=== PATIENT | female | born 1960 | race Hispanic/Latino ===

== ENCOUNTER 2019-03-05 13:13 | Inpatient (IN) | payer BC, OTHER ==
[2019-03-05] MEDS ORDERED: Albuterol-Ipratrop 3 mg / 0.5 (3 ml) UD INH STA ×2 (13:45→17:07)
[2019-03-05 14:06] LABS: ABG ALLEN TEST YES; ARTERIAL BLOOD GAS HCO3 27.4 mmol/L (21-28); ARTERIAL BLOOD GAS O2 SAT 96.3 % (95-98); ARTERIAL BLOOD GAS PCO2 48 mm/Hg (35-45); ARTERIAL BLOOD GAS PH 7.39 (7.35-7.45); ARTERIAL BLOOD GAS PO2 64 mm/Hg (80-100); ARTERIAL BLOOD GAS TCO2 30.6 mmol/L (22-28)
[2019-03-05 14:18] LABS: INR 1.1; PROTHROMBIN TIME 12.9 Seconds (9.8-13.1)
[2019-03-05 14:21] LABS: PARTIAL THROMBOPLASTIN TIME 34.7 Seconds (25.6-37.1)
[2019-03-05 14:22] LABS: ALB/GLOB RATIO 1.2 (1.0-2.1); ALBUMIN 4.3 g/dL (3.5-5.0); ALT/SGPT 47 U/L (9-52); AST/SGOT 43 U/L (14-36); BLOOD UREA NITROGEN 15 mg/dl (7-17); CALCIUM 8.6 mg/dL (8.4-10.2); GFR NON-AFRICAN AMERICAN > 60
[2019-03-05 14:24] LABS: BASO % 0.1 % (0.0-2.0); EOS % 0.1 % (0.0-4.0); HEMOGLOBIN 14.3 g/dL (12.0-16.0); LYMPH # 0.8 K/uL (1.0-4.3); LYMPH % 12.8 % (20.0-40.0); MEAN CELL VOLUME 103.4 fl (81.0-99.0); MEAN CORPUSCULAR HGB CONC 33.9 g/dL (33.0-37.0); MEAN PLATELET VOLUME 8.7 fl (7.2-11.7); MONO # 0.2 K/uL (0.0-0.8); NEUT # 5.1 K/uL (1.8-7.0); NRBC % 0.1 % (0.0-0.0); RBC 4.08 Mil/uL (3.80-5.20); RED CELL DISTRIBUTION WIDTH 13.4 % (11.5-14.5); WHITE BLOOD COUNT 6.1 K/uL (4.8-10.8)
[2019-03-05 14:34] LABS: B-TYPE NATRIURETIC PEPTIDE 29.6 pg/ml (0-900)
--- NOTE | 2019-03-05 14:43 | ED PDOC ---
HPI: SOB/CHF/COPD Time Seen by Provider: 03/05/19 13:31 Chief Complaint (Nursing): Shortness Of Breath Chief Complaint (Provider): Shortness Of Breath History Per: Patient History/Exam Limitations: no limitations Onset/Duration Of Symptoms: Persistent, Worse Since (3 days) Current Symptoms Are (Timing): Still Present Additional Complaint(s): 58 year old female presents to the emergency department with a complaint of shortness of breath associated with nonproductive cough, subjective fever, and chest congestion for 1 week but worsen in the past 3 days. She denies any leg pain or swelling. Yesterday, patient went to Urgent Care, as her PCP office was closed, then discharged with Rx for Prednisone and Levaquin. She started both medication today, however, shortness of breath increased, thus, prompting ED visit. Past Medical History Reviewed: Historical Data, Nursing Documentation, Vital Signs Vital Signs: Last Vital Signs Temp 98.6 F 03/05/19 13:24 Pulse 74 03/05/19 13:24 Resp 20 03/05/19 13:24 BP 145/80 03/05/19 13:24 Pulse Ox 98 03/05/19 13:24 Primary Care Provider: Aayush Hines - Medical History PMH: COPD - Surgical History Surgical History: No Surg Hx - Family History Family History: States: No Known Family Hx - Social History Current smoker - smoking cessation education provided: No Ex-Smoker (has not smoked in the last 12 months): Yes (2011) - Home Medications Home Medications: Ambulatory Orders Medication Instructions Recorded Albuterol Sulfate [Ventolin Hfa] 2 puff PO PRN PRN 03/05/19 Budesonide/Formoterol Fumarate 2 aer IH DAILY 03/05/19 [Symbicort] Fluticasone Nasal [Flonase] 2 actuation NS DAILY 03/05/19 Levofloxacin [Levaquin] 500 mg PO DAILY 03/05/19 Prednisolone [Millipred] 50 mg PO DAILY 03/05/19 - Allergies Allergies/Adverse Reactions: Allergies Allergy/AdvReac Type Severity Reaction Status Date / Time Penicillins Allergy Verified 03/05/19 13:41 Review of Systems ROS Statement: Except As Marked, All Systems Reviewed And Found Negative Constitutional: Positive for: Fever (subjective) Cardiovascular: Positive for: Other (congestion) Respiratory: Positive for: Cough, Shortness of Breath. Negative for: Sputum Musculoskeletal: Negative for: Leg Pain (or swelling) Physical Exam - Reviewed Nursing Documentation Reviewed: Yes Vital Signs Reviewed: Yes - Physical Exam Appears: Positive for: Non-toxic, In Acute Distress Head Exam: Positive for: ATRAUMATIC, NORMOCEPHALIC Skin: Positive for: Warm, Dry, Pallor Eye Exam: Positive for: EOMI, PERRL ENT: Positive for: Pharynx Is (clear) Neck: Positive for: Painless ROM, Supple Cardiovascular/Chest: Positive for: Regular Rate, Rhythm. Negative for: Murmur Respiratory: Positive for: Accessory Muscle Use, Rhonchi (faint), Wheezing (expiratory bilaterally), Respiratory Distress (mildly with poor air movement) Gastrointestinal/Abdominal: Positive for: Soft. Negative for: Tenderness Back: Positive for: Normal Inspection. Negative for: Decreased ROM Extremity: Negative for: Pedal Edema, Calf Tenderness, Swelling Lymphatic: Negative for: Adenopathy Neurological/Psych: Positive for: Awake, Alert. Negative for: Motor/Sensory Deficits - Laboratory Results Result Diagrams: 03/06/19 04:20 03/06/19 04:20 Lab Results: pCO2 48 mm/Hg (35-45) H 03/05/19 14:01 pO2 64 mm/Hg (80-100) L 03/05/19 14:01 HCO3 27.4 mmol/L (21-28) 03/05/19 14:01 ABG pH 7.39 (7.35-7.45) 03/05/19 14:01 ABG Total CO2 30.6 mmol/L (22-28) H 03/05/19 14:01 ABG O2 Saturation 96.3 % (95-98) 03/05/19 14:01 ABG Base Excess 3.3 mmol/L (-2.0-3.0) H 03/05/19 14:01 Mynor Test Yes 03/05/19 14:01 ABG Potassium 4.1 mmol/L (3.6-5.2) 03/05/19 14:01 A-a O2 Difference 76.0 mm/Hg 03/05/19 14:01 Sodium 135.0 mmol/L (132-148) 03/05/19 14:01 Chloride 101.0 mmol/L (98-107) 03/05/19 14:01 Glucose 162 mg/dL (65-105) H 03/05/19 14:01 Lactate 1.0 mmol/L (0.7-2.1) 03/05/19 14:01 FiO2 28.0 % 03/05/19 14:01 PT 12.9 Seconds (9.8-13.1) 03/05/19 14:08 INR 1.1 03/05/19 14:08 APTT 34.7 Seconds (25.6-37.1) 03/05/19 14:08 D-Dimer, Quantitative 260 ng/mlDDU (0-230) H 03/05/19 14:08 Troponin I < 0.0120 ng/mL (0.00-0.120) 03/05/19 14:08 NT-Pro-B Natriuret Pep 29.6 pg/ml (0-900) 03/05/19 14:08 Total Bilirubin 0.4 mg/dl (0.2-1.3) 03/05/19 14:08 AST 43 U/L (14-36) H 03/05/19 14:08 ALT 47 U/L (9-52) 03/05/19 14:08 Alkaline Phosphatase 76 U/L (38-126) 03/05/19 14:08 Total Protein 7.9 G/DL (6.3-8.2) 03/05/19 14:08 Albumin 4.3 g/dL (3.5-5.0) 03/05/19 14:08 Globulin 3.6 gm/dL (2.2-3.9) 03/05/19 14:08 Albumin/Globulin Ratio 1.2 (1.0-2.1) 03/05/19 14:08 - ECG O2 Sat by Pulse Oximetry: 98 (RA) Pulse Ox Interpretation: Normal Medical Decision Making Medical Decision Making: Initial Impression: dyspnea Differential diagnosis includes but not limited to: COPD exacerbation; pneumonia; CHF; bronchitis Initial Plan: * Labs * CTA chest * EKG * CXR * Duoneb INH * Solu-medrol IVP * Blood culture * Influenza AB Time: 1345 --EKG: NSR at 88 BMP. normal QRS with (-) ST segment changes. CXR No acute pathology ABG demonstrated pCO2 mildly elevated and pO2 below normal. Time: 1625 --CTA chest FINDINGS: PULMONARY ARTERIES: Unremarkable. No pulmonary embolism. AORTA: No acute findings. No thoracic aortic aneurysm. No aortic atherosclerotic calcification or mural plaque present. LUNGS: Minimal centrilobular pulmonary emphysema. No pulmonary infiltrate. No mass. PLEURAL SPACES: Unremarkable. No effusion or pneumothorax. HEART: Unremarkable. No cardiomegaly. No significant pericardial effusion. LYMPH NODES: No lymphadenopathy. BONES, CHEST WALL: Unremarkable. No fracture or destructive lesion OTHER FINDINGS: Unremarkable. IMPRESSION: No evidence of pulmonary embolism. Minimal centrilobular pulmonary emphysema. Otherwise unremarkable examination. Time: 1630 --Upon re-eval, patient reports persistent shortness of breath. Findings and plan of care discussed with patient who verbalizes understanding. Patient will require hospitalization with additional IV magnesium for further management of COPD exacerbation. Case discussed with Dr. Bay and Dr. Hines. Scribe Attestation: Documented by Mecca Dunlap, acting as a scribe for Lupe Quintana MD. Provider Scribe Attestation: All medical record entries made by the Scribe were at my direction and personally dictated by me. I have reviewed the chart and agree that the record accurately reflects my personal performance of the history, physical exam, medical decision making, and the department course for this patient. I have also personally directed, reviewed, and agree with the discharge instructions and disposition. Disposition - Clinical Impression Clinical Impression: COPD exacerbation, Dyspnea Counseled Patient/Family Regarding: Studies Performed, Diagnosis - Disposition Disposition Time: 16:00 Condition: FAIR - Pt Status Changed To: Hospital Disposition Of: Observation - POA Present On Arrival: None Critical Care Time - Critical Care Note Total Time (in mins): 30 Documented critical care: time excludes all time spent performing seperately billable procedures.
[2019-03-05] MEDS ORDERED: Iodixanol 320 MG/ML 100 ML BOTTLE IV ONE (14:52)
[2019-03-05] MEDS ORDERED: Sodium Chloride 0.9% 50 ML IV ONE (14:53)
--- NOTE | 2019-03-05 16:13 | RAD ---
Date of service: 03/05/2019 HISTORY: SOB COMPARISON: 12/25/2013 TECHNIQUE: 1 view obtained. FINDINGS: LUNGS: No active pulmonary disease. PLEURA: No significant pleural effusion identified, no pneumothorax apparent. CARDIOVASCULAR: No aortic atherosclerotic calcification present. Normal cardiac size. No pulmonary vascular congestion. OSSEOUS STRUCTURES: No significant abnormalities. VISUALIZED UPPER ABDOMEN: Normal. OTHER FINDINGS: None. IMPRESSION: No active disease.
--- NOTE | 2019-03-05 16:29 | CT ---
Date of service: 03/05/2019 PROCEDURE: CT Chest with contrast (Pulmonary Angiogram) HISTORY: sob elevated ddimer COMPARISON: 12/18/2013 TECHNIQUE: Axial computed tomography images were obtained of the chest in the pulmonary arterial phase of enhancement. Coronal and sagittal reformatted images were created and reviewed. Intravenous contrast dose: 95 mL Visipaque 320 Radiation dose: Total exam DLP = 386.99 mGy-cm. This CT exam was performed using one or more of the following dose reduction techniques: Automated exposure control, adjustment of the mA and/or kV according to patient size, and/or use of iterative reconstruction technique. FINDINGS: PULMONARY ARTERIES: Unremarkable. No pulmonary embolism. AORTA: No acute findings. No thoracic aortic aneurysm. No aortic atherosclerotic calcification or mural plaque present. LUNGS: Minimal centrilobular pulmonary emphysema. No pulmonary infiltrate. No mass. PLEURAL SPACES: Unremarkable. No effusion or pneumothorax. HEART: Unremarkable. No cardiomegaly. No significant pericardial effusion. LYMPH NODES: No lymphadenopathy. BONES, CHEST WALL: Unremarkable. No fracture or destructive lesion OTHER FINDINGS: Unremarkable. IMPRESSION: No evidence of pulmonary embolism. Minimal centrilobular pulmonary emphysema. Otherwise unremarkable examination.
[2019-03-05] MEDS ORDERED: Magnesium Sulfate 2 gm/50 ml 2 GM/50 ML BAG IVPB ONE (16:51)
[2019-03-05] MEDS ORDERED: Magnesium Sulfate 2 gm/50 ml 2 GM/50 ML BAG ONE (16:59)
[2019-03-05] MEDS ORDERED: Albuterol HFA 90 mcg/actuation (8 g) INH PRN (18:30)
[2019-03-05] MEDS ORDERED: Albuterol-Ipratrop 3 mg / 0.5 (3 ml) UD INH PRN (18:34)
--- NOTE | 2019-03-05 19:15 | CP.PCM.HP ---
<Patricia Farmer - Last Filed: 03/05/19 19:19> History of Present Illness - History of Present Illness History of Present Illness: CC: dyspnea HPI: 58 YO Female with PMHx of smoking and COPD presents to the ED for dyspnea. Patient states that she has been having mild dyspnea in the past few days, worsened two days ago. Patient went to a urgent care last week and was given PO prednisone and Levofloxacin but her symptoms persisted. Patient states that a few weeks ago, she was found to have walking pneumonia and was treated with a course of abx, but that has resolved. PMHx: asthma as a child, hx smoking and COPD SurgHs: denies SHx: smoking in the past, quit 10+ yrs ago, denies ETOH and illicit drug use FHx: emphesema Allergies: penicillin Meds: symbicort and albuterol Present on Admission - Present on Admission Any Indicators Present on Admission: No Review of Systems - Constitutional Constitutional: absent: Anorexia, Chills, Fever - Cardiovascular Cardiovascular: Dyspnea. absent: Chest Pain, Palpitations - Respiratory Respiratory: Dyspnea. absent: Cough - Gastrointestinal Gastrointestinal: absent: Abdominal Pain Past Patient History - Past Social History Smoking Status: Former Smoker Alcohol: None Drugs: Denies - PULMONARY Hx Chronic Obstructive Pulmonary Disease (COPD): Yes - PSYCHIATRIC Hx Substance Use: No - ANESTHESIA Hx Anesthesia: No Meds Allergies/Adverse Reactions: Allergies Allergy/AdvReac Type Severity Reaction Status Date / Time Penicillins Allergy Verified 03/05/19 13:41 Physical Exam - Constitutional Appears: Other (able to talk in complete sensences, mildly red, NC on ) - Head Exam Head Exam: NORMAL INSPECTION - Eye Exam Eye Exam: EOMI, Normal appearance - ENT Exam ENT Exam: Mucous Membranes Moist - Respiratory Exam Respiratory Exam: Wheezes (expiratory and inspiratory wheezing ), NORMAL BREATHING PATTERN (tight ) - Cardiovascular Exam Cardiovascular Exam: REGULAR RHYTHM, +S1, +S2 - GI/Abdominal Exam GI & Abdominal Exam: Normal Bowel Sounds, Soft (obese). absent: Tenderness - Extremities Exam Extremities exam: Positive for: normal inspection. Negative for: calf te nderness, pedal edema - Neurological Exam Neurological exam: Alert, Oriented x3 - Psychiatric Exam Psychiatric exam: Normal Mood - Skin Skin Exam: Warm (flushed ) Results - Vital Signs Recent Vital Signs: Last Vital Signs Temp 98.3 F 03/05/19 19:04 Pulse 88 03/05/19 19:04 Resp 22 03/05/19 19:04 BP 120/70 03/05/19 19:04 Pulse Ox 90 L 03/05/19 19:04 - Labs Result Diagrams: 03/05/19 14:08 03/05/19 14:08 Labs: Laboratory Results - last 24 hr 03/05/19 03/05/19 03/05/19 14:01 14:08 14:08 WBC 6.1 RBC 4.08 Hgb 14.3 Hct 42.2 MCV 103.4 H MCH 35.0 H MCHC 33.9 RDW 13.4 Plt Count 154 MPV 8.7 Neut % (Auto) 83.0 H Lymph % (Auto) 12.8 L [place] % (Auto) 4.0 Eos % (Auto) 0.1 Baso % (Auto) 0.1 Neut # (Auto) 5.1 Lymph # (Auto) 0.8 L [place] # (Auto) 0.2 Eos # (Auto) 0.0 Baso # (Auto) 0.0 PT INR APTT D-Dimer, Quantitative pCO2 48 H pO2 64 L HCO3 27.4 ABG pH 7.39 ABG Total CO2 30.6 H ABG O2 Saturation 96.3 ABG Base Excess 3.3 H Mynor Test Yes ABG Potassium 4.1 A-a O2 Difference 76.0 Sodium 135.0 137 Chloride 101.0 99 Glucose 162 H Lactate 1.0 FiO2 28.0 Potassium 4.5 Carbon Dioxide 28 Anion Gap 15 BUN 15 Creatinine 0.5 L Est GFR ( Amer) > 60 Est GFR (Non-Af Amer) > 60 Random Glucose 157 H Calcium 8.6 Total Bilirubin 0.4 AST 43 H ALT 47 Alkaline Phosphatase 76 Troponin I < 0.0120 NT-Pro-B Natriuret Pep 29.6 Total Protein 7.9 Albumin 4.3 Globulin 3.6 Albumin/Globulin Ratio 1.2 TSH 3rd Generation 0.59 Arterial Blood Potassium 4.1 Influenza Typ A,B (EIA) 03/05/19 03/05/19 14:08 14:08 WBC RBC Hgb Hct MCV MCH MCHC RDW Plt Count MPV Neut % (Auto) Lymph % (Auto) [place] % (Auto) Eos % (Auto) Baso % (Auto) Neut # (Auto) Lymph # (Auto) [place] # (Auto) Eos # (Auto) Baso # (Auto) PT 12.9 INR 1.1 APTT 34.7 D-Dimer, Quantitative 260 H pCO2 pO2 HCO3 ABG pH ABG Total CO2 ABG O2 Saturation ABG Base Excess Mynor Test ABG Potassium A-a O2 Difference Sodium Chloride Glucose Lactate FiO2 Potassium Carbon Dioxide Anion Gap BUN Creatinine Est GFR ( Amer) Est GFR (Non-Af Amer) Random Glucose Calcium Total Bilirubin AST ALT Alkaline Phosphatase Troponin I NT-Pro-B Natriuret Pep Total Protein Albumin Globulin Albumin/Globulin Ratio TSH 3rd Generation Arterial Blood Potassium Influenza Typ A,B (EIA) Negative for flu a/b - EKG Data EKG Interpreted by: Myself EKG shows normal: Sinus rhythm Rate: Normal (Normal sinus with a rate of 88, no ST or T wave changes ) Assessment & Plan - Assessment and Plan (Free Text) Assessment: Assessment/Plan: 58 YO Female with PMHx of smoking and COPD is admitted for COPD exacerbation. COPD exacerbation -CT no acute infiltrate, no PE -c/w IV steriods -start duonab Q2/Q4 as needed -O2 via NC as needed -stat azithromycin for COPD exacerbation -c/w home meds -Pulmonary consulted; follow up recs Hx of smoking -stopped smoking DVT prolx -Lovenox SC <[place] - Last Filed: 03/05/19 20:39> Results - Vital Signs Recent Vital Signs: Last Vital Signs Temp 98.3 F 03/05/19 20:36 Pulse 78 03/05/19 20:36 Resp 20 03/05/19 20:36 BP 120/71 03/05/19 20:36 Pulse Ox 98 03/05/19 20:36 - Labs Result Diagrams: 03/05/19 14:08 03/05/19 14:08 Labs: Laboratory Results - last 24 hr 03/05/19 03/05/19 03/05/19 14:01 14:08 14:08 WBC 6.1 RBC 4.08 Hgb 14.3 Hct 42.2 MCV 103.4 H MCH 35.0 H MCHC 33.9 RDW 13.4 Plt Count 154 MPV 8.7 Neut % (Auto) 83.0 H Lymph % (Auto) 12.8 L [place] % (Auto) 4.0 Eos % (Auto) 0.1 Baso % (Auto) 0.1 Neut # (Auto) 5.1 Lymph # (Auto) 0.8 L [place] # (Auto) 0.2 Eos # (Auto) 0.0 Baso # (Auto) 0.0 PT INR APTT D-Dimer, Quantitative pCO2 48 H pO2 64 L HCO3 27.4 ABG pH 7.39 ABG Total CO2 30.6 H ABG O2 Saturation 96.3 ABG Base Excess 3.3 H Mynor Test Yes ABG Potassium 4.1 A-a O2 Difference 76.0 Sodium 135.0 137 Chloride 101.0 99 Glucose 162 H Lactate 1.0 FiO2 28.0 Potassium 4.5 Carbon Dioxide 28 Anion Gap 15 BUN 15 Creatinine 0.5 L Est GFR ( Amer) > 60 Est GFR (Non-Af Amer) > 60 Random Glucose 157 H Calcium 8.6 Total Bilirubin 0.4 AST 43 H ALT 47 Alkaline Phosphatase 76 Troponin I < 0.0120 NT-Pro-B Natriuret Pep 29.6 Total Protein 7.9 Albumin 4.3 Globulin 3.6 Albumin/Globulin Ratio 1.2 TSH 3rd Generation 0.59 Arterial Blood Potassium 4.1 Influenza Typ A,B (EIA) 03/05/19 03/05/19 14:08 14:08 WBC RBC Hgb Hct MCV MCH MCHC RDW Plt Count MPV Neut % (Auto) Lymph % (Auto) [place] % (Auto) Eos % (Auto) Baso % (Auto) Neut # (Auto) Lymph # (Auto) [place] # (Auto) Eos # (Auto) Baso # (Auto) PT 12.9 INR 1.1 APTT 34.7 D-Dimer, Quantitative 260 H pCO2 pO2 HCO3 ABG pH ABG Total CO2 ABG O2 Saturation ABG Base Excess Mynor Test ABG Potassium A-a O2 Difference Sodium Chloride Glucose Lactate FiO2 Potassium Carbon Dioxide Anion Gap BUN Creatinine Est GFR ( Amer) Est GFR (Non-Af Amer) Random Glucose Calcium Total Bilirubin AST ALT Alkaline Phosphatase Troponin I NT-Pro-B Natriuret Pep Total Protein Albumin Globulin Albumin/Globulin Ratio TSH 3rd Generation Arterial Blood Potassium Influenza Typ A,B (EIA) Negative for flu a/b Attending/Attestation - Attestation I have personally seen and examined this patient.: Yes I have fully participated in the care of the patient.: Yes I have reviewed all pertinent clinical information: Yes Notes (Text): 03/05/19 20:37 58 year old female admitted for COPD exacerbation, worsening dyspnea for two days, not improving with breathing treatments at home. Went to urgent care and received Levaquin and course of steroids without improvement. Patient of Dr. Hines, will place on obs for further bronchodilators, high dose steroids around the clock, ppx Azithromycin. Consult with Dr. Hines appreciated and followed.
[2019-03-05] MEDS ORDERED: Azithromycin 500 MG in Sodium Chloride 0.9% 250 ML IVPB STA (19:39)
[2019-03-05] MEDS: FLUTICASONE PROPION/SALMETEROL 113-14 IH SCH (21:32)
[2019-03-06] MEDS: Albuterol-Ipratrop 3 mg / 0.5 (3 ml) UD INH SCH ×6 (00:06→19:12)
[2019-03-06 05:47] LABS: BASO % 0.1 % (0.0-2.0); HEMOGLOBIN 13.5 g/dL (12.0-16.0); LYMPH # 0.8 K/uL (1.0-4.3); LYMPH % 14.2 % (20.0-40.0); MEAN CELL VOLUME 103.2 fl (81.0-99.0); MEAN CORPUSCULAR HEMOGLOBIN 34.8 pg (27.0-31.0); MEAN CORPUSCULAR HGB CONC 33.8 g/dL (33.0-37.0); MEAN PLATELET VOLUME 8.8 fl (7.2-11.7); MONO # 0.2 K/uL (0.0-0.8); MONO % 3.2 % (0.0-10.0); NEUT # 4.9 K/uL (1.8-7.0); NEUT % 82.5 % (50.0-75.0); RBC 3.86 Mil/uL (3.80-5.20); RED CELL DISTRIBUTION WIDTH 13.5 % (11.5-14.5); WHITE BLOOD COUNT 5.9 K/uL (4.8-10.8)
[2019-03-06 05:51] LABS: BLOOD UREA NITROGEN 16 mg/dl (7-17); CALCIUM 8.3 mg/dL (8.4-10.2); GFR NON-AFRICAN AMERICAN > 60
[2019-03-06] MEDS: FLUTICASONE PROPION/SALMETEROL 113-14 IH SCH (08:11)
[2019-03-06] MEDS: Enoxaparin 40 mg Syringe SC SCH (08:14)
[2019-03-06] MEDS ORDERED: FORMOTEROL FUMARATE IH SCH (09:00)
[2019-03-06] MEDS ORDERED: [UNRECOGNIZED DRUG - OTHER] IH SCH (09:00)
[2019-03-06] MEDS ORDERED: BUDESONIDE IH SCH (09:00)
[2019-03-06 09:15] LABS: ABG ALLEN TEST YES; ARTERIAL BLOOD GAS HCO3 27.2 mmol/L (21-28); ARTERIAL BLOOD GAS HEMOGLOBIN 13.9 g/dL (11.7-17.4); ARTERIAL BLOOD GAS O2 CAPACITY 18.9 mL/dL (16-24); ARTERIAL BLOOD GAS O2 CONTENT 16.7 ML/dL (15-23); ARTERIAL BLOOD GAS O2 SAT 88.3 % (95-98); ARTERIAL BLOOD GAS PCO2 44 mm/Hg (35-45); ARTERIAL BLOOD GAS PH 7.42 (7.35-7.45); ARTERIAL BLOOD GAS PO2 49 mm/Hg (80-100); ARTERIAL BLOOD GAS TCO2 29.9 mmol/L (22-28)
[2019-03-06] MEDS ORDERED: Albuterol HFA 90 mcg/actuation (8 g) INH PRN (09:42)
[2019-03-06] MEDS ORDERED: methylPREDNISolone 40 MG in Sodium Chloride 0.9% 50 ML IV SCH (09:45)
--- NOTE | 2019-03-06 09:53 | CP.PCM.CON ---
History of Present Illness - History of Present Illness History of Present Illness: This 58-year-old female who is a former cigarette smoker who presented to the emergency department with a 2-3 day history of cough and increasing dyspnea. She did have an upper respiratory infection in the week prior to ER presentation for which she was seen at a local urgent care center. She was given prednisone and levofloxacin but failed to show any improvement. Her breathing continued to worsen and she finally came to the emergency department for evaluation. A chest x-ray done at that time as well as a CT angiogram of the chest did not reveal any acute infiltrates or pulmonary emboli. She was found to have diffuse whee zing and was given corticosteroids as well as magnesium parenterally and aerosol therapy after which she was placed in observation on the medical floor. She was seen in the office approximately 2 months ago at which time she was complaining of a persistent cough and was placed on Symbicort 160/4.5, 2 inhalations twice daily for exacerbation of asthma/COPD overlap syndrom Review of Systems - Review of Systems All systems: reviewed and no additional remarkable complaints except - Constitutional Constitutional: Fatigue - Respiratory Respiratory: Cough, Dyspnea, Wheezing, Chest Congestion Past Patient History - Past Medical History & Family History Past Medical History?: Yes Pertinent Family History: MotherCOPD. Fathercancer. One brotherheart disease. One brotherdiabetes. - Past Social History Smoking Status: Former Smoker (smoked up to 2 packs per day for 30 years) Chewing Tobacco Use: No Cigar Use: No Alcohol: Social Drugs: Denies Home Situation {Lives}: With Family - CARDIAC Hx Cardiac Disorders: No - PULMONARY Hx Asthma: Yes Hx Chronic Obstructive Pulmonary Disease (COPD): Yes Hx Pneumonia: Yes - NEUROLOGICAL Hx Neurological Disorder: No - HEENT Hx HEENT Problems: No - RENAL Hx Chronic Kidney Disease: No - ENDOCRINE/METABOLIC Other/Comment: prediabetes - HEMATOLOGICAL/ONCOLOGICAL Hx Blood Disorders: No - INTEGUMENTARY Hx Dermatological Problems: No - MUSCULOSKELETAL/RHEUMATOLOGICAL Hx Arthritis: Yes Hx Falls: No Other/Comment: degenerative disc disease of lumbar spine. sciatica - GASTROINTESTINAL Hx Gastrointestinal Disorders: No - GENITOURINARY/GYNECOLOGICAL Hx Genitourinary Disorders: No - PSYCHIATRIC Hx Psychophysiologic Disorder: No Hx Substance Use: No - SURGICAL HISTORY Hx Surgeries: No - ANESTHESIA Hx Anesthesia: No Hx Anesthesia Reactions: No Hx Malignant Hyperthermia: No Has any member of the family had a problem w/ anesthesia?: No Meds Allergies/Adverse Reactions: Allergies Allergy/AdvReac Type Severity Reaction Status Date / Time Penicillins Allergy Verified 03/05/19 13:41 - Medications Medications: Current Medications Albuterol (Ventolin Hfa 90 Mcg/Actuation (8 G)) 2 puff INH Q2H PRN PRN Reason: Shortness of Breath Albuterol/Ipratropium (Duoneb 3 Mg/0.5 Mg (3 Ml) Ud) 3 ml INH RQID BARBARA Enoxaparin Sodium (Lovenox) 40 mg SC DAILY BARBARA; Protocol Last Admin: 03/06/19 08:14 Dose: 40 mg Fluticasone Propionate (Flonase) 1 spr BLAIR DAILY BARBARA Last Admin: 03/06/19 08:13 Dose: 1 spr Guaifenesin/Dextromethorphan (Mucinex-Dm 600-30 Mg) 1 tab PO Q12 BARBARA Azithromycin 500 mg/ Sodium (Chloride) 250 mls @ 250 mls/hr IVPB DAILY BARBARA; Protocol Methylprednisolone (Solu-Medrol) 40 mg IVP Q8 BARBARA Roflumilast (Daliresp) 250 mcg PO DAILY BARBARA Physical Exam - Additional Findings Additional findings: Overweight female who is coughing during the examination. Flushed facies noted. Memory is intact, gait is not tested, no focal motor weakness, speech is fluent. Pharynx is injected and the mucous membranes are moist without exudate. Nasal passages are patent bilaterally with septum deviated to the right. No bleeding or exudate. EACs are patent and TMs are intact bilaterally. No dullness on chest percussion. Equal expansion. Breath sounds are well heard bilaterally with scattered expiratory wheezing in both lower lobes. No rales or bronchial breathing. Scattered rhonchi bilaterally. Heart sounds are well heard the rhythm is regular and mildly tachycardic. The abdomen is soft, fleshy and nontender with normal bowel sounds. No dependent edema of the lower extremities. Peripheral pulses are intact in all 4 extremities. No ecchymosis or rash. Results - Vital Signs Recent Vital Signs: Last Vital Signs Temp 98.0 F 03/06/19 08:00 Pulse 65 03/06/19 08:00 Resp 18 03/06/19 08:00 BP 117/72 03/06/19 08:00 Pulse Ox 88 L 05/20/19 08:00 - Labs Result Diagrams: 03/06/19 04:20 03/06/19 04:20 Labs: Laboratory Results - last 24 hr 03/05/19 03/05/19 03/05/19 14:01 14:08 14:08 WBC 6.1 RBC 4.08 Hgb 14.3 Hct 42.2 MCV 103.4 H MCH 35.0 H MCHC 33.9 RDW 13.4 Plt Count 154 MPV 8.7 Neut % (Auto) 83.0 H Lymph % (Auto) 12.8 L Gulf % (Auto) 4.0 Eos % (Auto) 0.1 Baso % (Auto) 0.1 Neut # (Auto) 5.1 Lymph # (Auto) 0.8 L Gulf # (Auto) 0.2 Eos # (Auto) 0.0 Baso # (Auto) 0.0 PT INR APTT D-Dimer, Quantitative pCO2 48 H pO2 64 L HCO3 27.4 ABG pH 7.39 ABG Total CO2 30.6 H ABG O2 Saturation 96.3 ABG O2 Content ABG Base Excess 3.3 H ABG Hemoglobin ABG Carboxyhemoglobin POC ABG HHb (Measured) ABG Methemoglobin ABG O2 Capacity Mynor Test Yes ABG Potassium 4.1 A-a O2 Difference 76.0 Hgb O2 Saturation Sodium 135.0 137 Chloride 101.0 99 Glucose 162 H Lactate 1.0 FiO2 28.0 Potassium 4.5 Carbon Dioxide 28 Anion Gap 15 BUN 15 Creatinine 0.5 L Est GFR ( Amer) > 60 Est GFR (Non-Af Amer) > 60 Random Glucose 157 H Calcium 8.6 Total Bilirubin 0.4 AST 43 H ALT 47 Alkaline Phosphatase 76 Troponin I < 0.0120 NT-Pro-B Natriuret Pep 29.6 Total Protein 7.9 Albumin 4.3 Globulin 3.6 Albumin/Globulin Ratio 1.2 TSH 3rd Generation 0.59 Arterial Blood Potassium 4.1 Influenza Typ A,B (EIA) 03/05/19 03/05/19 03/06/19 14:08 14:08 04:20 WBC 5.9 RBC 3.86 Hgb 13.5 Hct 39.9 MCV 103.2 H MCH 34.8 H MCHC 33.8 RDW 13.5 Plt Count 156 MPV 8.8 Neut % (Auto) 82.5 H Lymph % (Auto) 14.2 L Gulf % (Auto) 3.2 Eos % (Auto) 0.0 Baso % (Auto) 0.1 Neut # (Auto) 4.9 Lymph # (Auto) 0.8 L Gulf # (Auto) 0.2 Eos # (Auto) 0.0 Baso # (Auto) 0.0 PT 12.9 INR 1.1 APTT 34.7 D-Dimer, Quantitative 260 H pCO2 pO2 HCO3 ABG pH ABG Total CO2 ABG O2 Saturation ABG O2 Content ABG Base Excess ABG Hemoglobin ABG Carboxyhemoglobin POC ABG HHb (Measured) ABG Methemoglobin ABG O2 Capacity Mynor Test ABG Potassium A-a O2 Difference Hgb O2 Saturation Sodium Chloride Glucose Lactate FiO2 Potassium Carbon Dioxide Anion Gap BUN Creatinine Est GFR ( Amer) Est GFR (Non-Af Amer) Random Glucose Calcium Total Bilirubin AST ALT Alkaline Phosphatase Troponin I NT-Pro-B Natriuret Pep Total Protein Albumin Globulin Albumin/Globulin Ratio TSH 3rd Generation Arterial Blood Potassium Influenza Typ A,B (EIA) Negative for flu a/b 03/06/19 03/06/19 04:20 08:31 WBC RBC Hgb Hct MCV MCH MCHC RDW Plt Count MPV Neut % (Auto) Lymph % (Auto) Gulf % (Auto) Eos % (Auto) Baso % (Auto) Neut # (Auto) Lymph # (Auto) Gulf # (Auto) Eos # (Auto) Baso # (Auto) PT INR APTT D-Dimer, Quantitative pCO2 44 pO2 49 L HCO3 27.2 ABG pH 7.42 ABG Total CO2 29.9 H ABG O2 Saturation 88.3 L ABG O2 Content 16.7 ABG Base Excess 3.4 H ABG Hemoglobin 13.9 ABG Carboxyhemoglobin 2.1 H POC ABG HHb (Measured) 11.3 H ABG Methemoglobin 1.2 ABG O2 Capacity 18.9 Mynor Test Yes ABG Potassium A-a O2 Difference 110.0 Hgb O2 Saturation 85.4 L Sodium 137 Chloride 100 Glucose Lactate FiO2 30.0 Potassium 4.6 Carbon Dioxide 28 Anion Gap 14 BUN 16 Creatinine 0.5 L Est GFR ( Amer) > 60 Est GFR (Non-Af Amer) > 60 Random Glucose 212 H Calcium 8.3 L Total Bilirubin AST ALT Alkaline Phosphatase Troponin I NT-Pro-B Natriuret Pep Total Protein Albumin Globulin Albumin/Globulin Ratio TSH 3rd Generation Arterial Blood Potassium Influenza Typ A,B (EIA) Assessment & Plan (1) Asthma Assessment and Plan: Asthma/COPD overlap syndrome Status: Acute Priority: High (2) COPD exacerbation Status: Acute Priority: High (3) BMI 31.0-31.9,adult Status: Chronic Priority: High (4) Hyperglycemia, drug-induced Assessment and Plan: Steroid induced. Status: Acute Priority: High (5) Hypoxia Status: Acute Priority: High - Assessment and Plan (Free Text) Plan: Continue supplemental oxygen via nasal cannula. Continue aerosol therapy. Continue parenteral corticosteroids, dose reduced. Continue antibiotic therapy in the form of azithromycin. Roflumilast 250 g added to the regimen. Mucolytics and cough suppression. - Date & Time Date: 03/06/19 Time: 09:50
--- NOTE | 2019-03-06 11:56 | CARD ---
APPROVED REPORT Date of service: 03/05/2019 EKG Measurement Heart [id number] <Conclusion> Normal sinus rhythm Normal ECG
--- NOTE | 2019-03-06 12:02 | CARD ---
APPROVED REPORT Date of service: 03/06/2019 EXAM: Two-dimensional and M-mode echocardiogram with Doppler and color Doppler. Other Information Quality : AverageRhythm : NSR Technically limited study due to smoking. INDICATION Dyspnea 2D DIMENSIONS IVSd1.11 (0.7-1.1cm)LVDd4.75 (3.9-5.9cm) LVOT Diameter2.13 (1.8-2.4cm)PWd1.07 (0.7-1.1cm) IVSs1.25 (0.8-1.2cm)LVDs3.07 (2.5-4.0cm) FS (%) 35.2 %PWs1.18 (0.8-1.2cm) M-Mode DIMENSIONS Left Atrium (MM)3.84 (2.5-4.0cm)IVSd1.09 (0.7-1.1cm) Aortic Root2.47 (2.2-3.7cm)LVDd3.97 (4.0-5.6cm) Aortic Cusp Exc.1.47 (1.5-2.0cm)PWd1.06 (0.7-1.1cm) IVSs1.34 cmFS (%) 39 % LVDs2.44 (2.0-3.8cm)PWs1.72 cm Aortic Valve AoV Peak Eoeucpkx216.2cm/sAoV VTI23.1cmAO Peak GR.6mmHg LVOT Peak Rojrjrmp165.1cm/sLVOT VTI21.34cmAO Mean GR.3mmHg TERENCE (VMAX)1.72bm1STL (VTI)1.62cm2 Mitral Valve MV E Clwlqayh57.5cm/sMV DECEL UTMQ130hmWL A Rfhgctaj77.3cm/s MV LYD44fxV/A ratio0.8MVA (PHT)2.79cm2 TDI Lateral E' Peak V10.43cm/sMedial E' Peak V6.36cm/sE/Lateral E'5.8 E/Medial E'9.5 Tricuspid Valve TR Peak Ifsciwxw789oa/sRAP TKVRJNQB77yzMkYX Peak Gr.5mmHg BFDK85umVh LEFT VENTRICLE The left ventricle is normal size. There is normal left ventricular wall thickness. The left ventricular systolic function is normal. The estimated ejection fraction is 55-60% No regional wall motion abnormalities noted.. Transmitral Doppler flow pattern is Grade I-abnormal relaxation pattern. No left ventricle thrombus noted on this study. There is no ventricular septal defect visualized. There is no left ventricular aneurysm. There is no mass noted in the left ventricle. RIGHT VENTRICLE The right ventricle is normal size. There is normal right ventricular wall thickness. The right ventricular systolic function is normal. ATRIA The left atrium is mildly dilated. The right atrium size is normal. The interatrial septum is intact with no evidence for an atrial septal defect. AORTIC VALVE The aortic valve is normal in structure. No aortic regurgitation is present. There is no aortic valvular stenosis. There is no aortic valvular vegetation. MITRAL VALVE The mitral valve is normal in structure. There is no evidence of mitral valve prolapse. There is no mitral valve stenosis. There is no mitral valve regurgitation noted. TRICUSPID VALVE The tricuspid valve is normal in structure. There is trace tricuspid valve regurgitation noted. RVSP is calculated at 20 mm Hg. There is no tricuspid valve prolapse or vegetation. There is no tricuspid valve stenosis. PULMONIC VALVE The pulmonary valve is normal in structure. There is no pulmonic valvular regurgitation. There is no pulmonic valvular stenosis. GREAT VESSELS The aortic root is normal in size. The ascending aorta is normal in size. The pulmonary artery is normal. The IVC is normal in size and collapses >50% with inspiration. PERICARDIAL EFFUSION There is no pericardial effusion. There is no pleural effusion. <Conclusion> The estimated ejection fraction is 55-60% Transmitral Doppler flow pattern is Grade I-abnormal relaxation pattern. The left atrium is mildly dilated. There is trace tricuspid valve regurgitation noted. RVSP is calculated at 20 mm Hg.
[2019-03-06] MEDS: ROFLUMILAST 250 MCG PO SCH (12:17)
[2019-03-06] MEDS: guaiFENesin-DM 600-30 mg ER Tab PO SCH ×2 (12:17→21:06)
[2019-03-06] MEDS: MethylPREDNISolone 40 mg Vial IVP SCH ×2 (12:18→17:20)
[2019-03-06] MEDS: Azithromycin 500 MG in Sodium Chloride 0.9% 250 ML IVPB SCH (12:23)
--- NOTE | 2019-03-06 16:20 | CP.PCM.PN ---
<Norberto Shine - Last Filed: 03/06/19 16:20> Subjective - Date & Time of Evaluation Date of Evaluation: 03/06/19 Time of Evaluation: 08:00 - Subjective Subjective: Pt seen and examined at bedside today, No acute event overnight. Patient is lying on bed comfortable, with no labor breathing. Patient state she is feeling better but not as baseline. Otherwise no complains. Objective - Vital Signs/Intake and Output Vital Signs (last 24 hours): Temp Pulse Resp BP Pulse Ox 97.5 F L 90 18 147/77 84 L 03/06/19 16:07 03/06/19 16:07 03/06/19 16:07 03/06/19 16:07 03/06/19 16:07 - Medications Medications: Current Medications Acetaminophen (Tylenol 325mg Tab) 650 mg PO Q6 PRN PRN Reason: Pain, Mild (1-3) Acetaminophen (Tylenol 325mg Tab) 650 mg PO STAT STA Stop: 03/06/19 15:55 Albuterol (Ventolin Hfa 90 Mcg/Actuation (8 G)) 2 puff INH Q2H PRN PRN Reason: Shortness of Breath Albuterol/Ipratropium (Duoneb 3 Mg/0.5 Mg (3 Ml) Ud) 3 ml INH RQID BARBARA Last Admin: 03/06/19 15:31 Dose: 3 ml Enoxaparin Sodium (Lovenox) 40 mg SC DAILY BARBARA; Protocol Last Admin: 03/06/19 08:14 Dose: 40 mg Fluticasone Propionate (Flonase) 1 spr BLAIR DAILY BARBARA Last Admin: 03/06/19 08:13 Dose: 1 spr Guaifenesin/Dextromethorphan (Mucinex-Dm 600-30 Mg) 1 tab PO Q12 BARBARA Last Admin: 03/06/19 12:17 Dose: 1 tab Azithromycin 500 mg/ Sodium (Chloride) 250 mls @ 250 mls/hr IVPB DAILY BARBARA; Protocol Last Admin: 03/06/19 12:23 Dose: 250 mls/hr Methylprednisolone (Solu-Medrol) 40 mg IVP Q8 BARBARA Last Admin: 03/06/19 12:18 Dose: 40 mg Roflumilast (Daliresp) 250 mcg PO DAILY BARBARA Last Admin: 03/06/19 12:17 Dose: 250 mcg - Labs Labs: 03/06/19 04:20 03/06/19 04:20 PT 12.9 Seconds (9.8-13.1) 03/05/19 14:08 INR 1.1 03/05/19 14:08 APTT 34.7 Seconds (25.6-37.1) 03/05/19 14:08 - Constitutional Appears: Well, Non-toxic, No Acute Distress - Head Exam Head Exam: ATRAUMATIC, NORMAL INSPECTION, NORMOCEPHALIC - Eye Exam Eye Exam: EOMI, Normal appearance, PERRL Pupil Exam: NORMAL ACCOMODATION, PERRL - ENT Exam ENT Exam: Mucous Membranes Moist, Normal Exam - Neck Exam Neck Exam: Full ROM, Normal Inspection - Respiratory Exam Respiratory Exam: Wheezes, NORMAL BREATHING PATTERN - Cardiovascular Exam Cardiovascular Exam: REGULAR RHYTHM, +S1, +S2 - GI/Abdominal Exam GI & Abdominal Exam: Soft, Normal Bowel Sounds - Extremities Exam Extremities Exam: Full ROM, Normal Capillary Refill, Normal Inspection - Back Exam Back Exam: NORMAL INSPECTION - Neurological Exam Neurological Exam: Alert, Awake, CN II-XII Intact, Normal Gait, Oriented x3 - Psychiatric Exam Psychiatric exam: Normal Affect, Normal Mood - Skin Skin Exam: Dry, Intact, Normal Color, Warm Assessment and Plan - Assessment and Plan (Free Text) Assessment: 58 YO Female with PMHx of smoking and COPD is admitted for COPD exacerbation. ECho reading EJ 55-60%, transmitral doppler flow pattern is grade 1 abnormal relaxation, LEft Atrium is mild dilated. trace of tricuspid valve regurgitation. RVSP is calculated at 20mmHG X-Ray negative COPD exacerbation Patient oxygen still trending in 80s Patient symptomatically improved CT no acute infiltrate, no PE Continue IV steriods Continue duonab Q2/Q4 as needed O2 via NC as needed Continue azithromycin for COPD exacerbation Continue with home meds Dr Hines on case, follow up recommendation (albuterol added ) Hx of smoking -stopped smoking DVT prolx -Lovenox SC <DutotnKennedi kiranFernando D - Last Filed: 03/06/19 18:33> Objective - Vital Signs/Intake and Output Vital Signs (last 24 hours): Temp Pulse Resp BP Pulse Ox 97.5 F L 90 18 147/77 84 L 03/06/19 16:07 03/06/19 16:07 03/06/19 16:07 03/06/19 16:07 03/06/19 16:07 - Medications Medications: Current Medications Acetaminophen (Tylenol 325mg Tab) 650 mg PO Q6 PRN PRN Reason: Pain, Mild (1-3) Albuterol (Ventolin Hfa 90 Mcg/Actuation (8 G)) 2 puff INH Q2H PRN PRN Reason: Shortness of Breath Albuterol/Ipratropium (Duoneb 3 Mg/0.5 Mg (3 Ml) Ud) 3 ml INH RQID BARBARA Last Admin: 03/06/19 15:31 Dose: 3 ml Enoxaparin Sodium (Lovenox) 40 mg SC DAILY BARBARA; Protocol Last Admin: 03/06/19 08:14 Dose: 40 mg Fluticasone Propionate (Flonase) 1 spr BLAIR DAILY BARBARA Last Admin: 03/06/19 08:13 Dose: 1 spr Guaifenesin/Dextromethorphan (Mucinex-Dm 600-30 Mg) 1 tab PO Q12 BARBARA Last Admin: 03/06/19 12:17 Dose: 1 tab Azithromycin 500 mg/ Sodium (Chloride) 250 mls @ 250 mls/hr IVPB DAILY BARBARA; Protocol Last Admin: 03/06/19 12:23 Dose: 250 mls/hr Methylprednisolone (Solu-Medrol) 40 mg IVP Q8 BARBARA Last Admin: 03/06/19 17:20 Dose: 40 mg Roflumilast (Daliresp) 250 mcg PO DAILY BARBARA Last Admin: 03/06/19 12:17 Dose: 250 mcg - Labs Labs: 03/06/19 04:20 03/06/19 04:20 PT 12.9 Seconds (9.8-13.1) 03/05/19 14:08 INR 1.1 03/05/19 14:08 APTT 34.7 Seconds (25.6-37.1) 03/05/19 14:08 Attending/Attestation - Attestation I have personally seen and examined this patient.: Yes I have fully participated in the care of the patient.: Yes I have reviewed all pertinent clinical information, including history, physical exam and plan: Yes Notes (Text): 03/06/19 18:32 Patient seen and examined with resident. Case discussed and agreed with assessment and plan
[2019-03-07] MEDS: MethylPREDNISolone 40 mg Vial IVP SCH ×4 (00:05→16:30)
[2019-03-07 05:49] LABS: ABG ALLEN TEST YES; ARTERIAL BLOOD GAS HCO3 28.5 mmol/L (21-28); ARTERIAL BLOOD GAS HEMOGLOBIN 13.2 g/dL (11.7-17.4); ARTERIAL BLOOD GAS O2 CAPACITY 17.9 mL/dL (16-24); ARTERIAL BLOOD GAS O2 CONTENT 16.9 ML/dL (15-23); ARTERIAL BLOOD GAS O2 SAT 94.2 % (95-98); ARTERIAL BLOOD GAS PCO2 45 mm/Hg (35-45); ARTERIAL BLOOD GAS PH 7.43 (7.35-7.45); ARTERIAL BLOOD GAS PO2 60 mm/Hg (80-100); ARTERIAL BLOOD GAS TCO2 31.3 mmol/L (22-28)
[2019-03-07 06:01] LABS: BASO % 0.1 % (0.0-2.0); HEMOGLOBIN 13.7 g/dL (12.0-16.0); LYMPH # 0.9 K/uL (1.0-4.3); LYMPH % 8.5 % (20.0-40.0); MEAN CELL VOLUME 103.9 fl (81.0-99.0); MEAN CORPUSCULAR HGB CONC 33.7 g/dL (33.0-37.0); MEAN PLATELET VOLUME 9.1 fl (7.2-11.7); MONO # 0.4 K/uL (0.0-0.8); MONO % 3.9 % (0.0-10.0); NEUT # 9.1 K/uL (1.8-7.0); NEUT % 87.5 % (50.0-75.0); NRBC % 0.2 % (0.0-0.0); PLATELET COUNT 172 K/uL (130-400); RBC 3.93 Mil/uL (3.80-5.20); RED CELL DISTRIBUTION WIDTH 13.6 % (11.5-14.5); WHITE BLOOD COUNT 10.4 K/uL (4.8-10.8)
--- NOTE | 2019-03-07 06:22 | CP.PCM.PN ---
<Norberto Shine - Last Filed: 03/07/19 11:43> Subjective - Date & Time of Evaluation Date of Evaluation: 03/07/19 Time of Evaluation: 08:00 - Subjective Subjective: Pt seen and examined at bedside today, no acute event overnight. Patient was placed on highflow due to her poor oxygen saturation and failure of improvement. Objective - Vital Signs/Intake and Output Vital Signs (last 24 hours): Temp Pulse Resp BP Pulse Ox 98.1 F 76 18 145/79 97 03/07/19 05:38 03/07/19 05:38 03/07/19 05:48 03/07/19 05:38 03/07/19 05:38 - Medications Medications: Current Medications Acetaminophen (Tylenol 325mg Tab) 650 mg PO Q6 PRN PRN Reason: Pain, Mild (1-3) Albuterol (Ventolin Hfa 90 Mcg/Actuation (8 G)) 2 puff INH Q2H PRN PRN Reason: Shortness of Breath Albuterol/Ipratropium (Duoneb 3 Mg/0.5 Mg (3 Ml) Ud) 3 ml INH RQID BARBARA Last Admin: 03/06/19 19:12 Dose: 3 ml Enoxaparin Sodium (Lovenox) 40 mg SC DAILY BARBARA; Protocol Last Admin: 03/06/19 08:14 Dose: 40 mg Fluticasone Propionate (Flonase) 1 spr BLAIR DAILY BARBARA Last Admin: 03/06/19 08:13 Dose: 1 spr Guaifenesin/Dextromethorphan (Mucinex-Dm 600-30 Mg) 1 tab PO Q12 BARBARA Last Admin: 03/06/19 21:06 Dose: 1 tab Azithromycin 500 mg/ Sodium (Chloride) 250 mls @ 250 mls/hr IVPB DAILY BARBARA; Protocol Last Admin: 03/06/19 12:23 Dose: 250 mls/hr Methylprednisolone (Solu-Medrol) 40 mg IVP Q8 BARBARA Last Admin: 03/07/19 00:05 Dose: 40 mg Roflumilast (Daliresp) 250 mcg PO DAILY BARBARA Last Admin: 03/06/19 12:17 Dose: 250 mcg - Labs Labs: 03/07/19 04:45 03/06/19 04:20 PT 12.9 Seconds (9.8-13.1) 03/05/19 14:08 INR 1.1 03/05/19 14:08 APTT 34.7 Seconds (25.6-37.1) 03/05/19 14:08 - Constitutional Appears: Well, Non-toxic, No Acute Distress - Head Exam Head Exam: ATRAUMATIC, NORMAL INSPECTION, NORMOCEPHALIC - Eye Exam Eye Exam: EOMI, Normal appearance, PERRL Pupil Exam: NORMAL ACCOMODATION, PERRL - ENT Exam ENT Exam: Mucous Membranes Moist, Normal Exam - Neck Exam Neck Exam: Full ROM, Normal Inspection - Respiratory Exam Respiratory Exam: Wheezes, NORMAL BREATHING PATTERN Additional comments: On High flow - Cardiovascular Exam Cardiovascular Exam: REGULAR RHYTHM, +S1, +S2 - GI/Abdominal Exam GI & Abdominal Exam: Soft, Normal Bowel Sounds - Extremities Exam Extremities Exam: Full ROM, Normal Capillary Refill, Normal Inspection - Back Exam Back Exam: NORMAL INSPECTION - Neurological Exam Neurological Exam: Alert, Awake, Oriented x3 - Psychiatric Exam Psychiatric exam: Normal Affect, Normal Mood - Skin Skin Exam: Dry, Normal Color, Rash, Warm Additional comments: Rash noted on extensor of extremities Assessment and Plan - Assessment and Plan (Free Text) Assessment: 58 YO Female with PMHx of smoking and COPD is admitted for COPD exacerbation. ECho reading EJ 55-60%, transmitral doppler flow pattern is grade 1 abnormal relaxation, LEft Atrium is mild dilated. trace of tricuspid valve regurgitation. RVSP is calculated at 20mmHG X-Ray negative COPD exacerbation On High flow due to persistent hypoxia Flow is on 30 right now ABG PO2 60 ( improved ) Patient symptomatically improved, but still scattered wheezing noted, with flushed face CT no acute infiltrate, no PE Methylprednisone decreased to 30 Continue duonab RQID Continue azithromycin for COPD exacerbation Start on Roflumilast 250mcg Continue albuterol HFA Continue with home meds F/U cover for nebulizer for outpatient Dr Hines on case, follow up recommendation Skin rash Erythema noted on extremities, WIll check for ANIKET Consult Dermatology, f/u recommendations Hx of smoking -stopped smoking DVT prolx -Lovenox SC <DuttonKennedi kiranFernando D - Last Filed: 03/07/19 16:36> Objective - Vital Signs/Intake and Output Vital Signs (last 24 hours): Temp Pulse Resp BP Pulse Ox 97.7 F 75 18 137/82 94 L 03/07/19 16:04 03/07/19 16:04 03/07/19 16:16 03/07/19 16:04 03/07/19 16:04 - Medications Medications: Current Medications Acetaminophen (Tylenol 325mg Tab) 650 mg PO Q6 PRN PRN Reason: Pain, Mild (1-3) Albuterol (Ventolin Hfa 90 Mcg/Actuation (8 G)) 2 puff INH Q2H PRN PRN Reason: Shortness of Breath Albuterol/Ipratropium (Duoneb 3 Mg/0.5 Mg (3 Ml) Ud) 3 ml INH RQID BARBARA Last Admin: 03/07/19 15:40 Dose: 3 ml Enoxaparin Sodium (Lovenox) 40 mg SC DAILY BARBARA; Protocol Last Admin: 03/07/19 09:51 Dose: 40 mg Fluticasone Propionate (Flonase) 1 spr BLAIR DAILY BARBARA Last Admin: 03/07/19 09:49 Dose: 1 spr Guaifenesin/Dextromethorphan (Mucinex-Dm 600-30 Mg) 1 tab PO Q12 BARBARA Last Admin: 03/07/19 09:52 Dose: 1 tab Azithromycin 500 mg/ Sodium (Chloride) 250 mls @ 250 mls/hr IVPB DAILY BARBARA; Protocol Last Admin: 03/07/19 11:14 Dose: 250 mls/hr Methylprednisolone (Solu-Medrol) 30 mg IVP Q8H BARBARA Last Admin: 03/07/19 16:30 Dose: 30 mg Roflumilast (Daliresp) 250 mcg PO DAILY BARBARA Last Admin: 03/07/19 09:49 Dose: 250 mcg - Labs Labs: 03/07/19 04:45 03/07/19 04:45 PT 12.9 Seconds (9.8-13.1) 03/05/19 14:08 INR 1.1 03/05/19 14:08 APTT 34.7 Seconds (25.6-37.1) 03/05/19 14:08 Attending/Attestation - Attestation I have personally seen and examined this patient.: Yes I have fully participated in the care of the patient.: Yes I have reviewed all pertinent clinical information, including history, physical exam and plan: Yes Notes (Text): 03/07/19 16:35 Patient seen and examined with resident. Case discussed and agreed with assessment and plan.
[2019-03-07 06:28] LABS: BLOOD UREA NITROGEN 18 mg/dl (7-17); CALCIUM 8.6 mg/dL (8.4-10.2); GFR NON-AFRICAN AMERICAN > 60
[2019-03-07] MEDS: Albuterol-Ipratrop 3 mg / 0.5 (3 ml) UD INH SCH ×4 (07:24→19:22)
[2019-03-07 08:54] LABS: BANDS 6 % (0-2); LYMPHOCYTE 10 % (20-50); MONOCYTE 3 % (0-10); MYELOCYTE 1 % (0-0); NEUTROPHIL 79 % (42-75); PLATELET ESTIMATE NORMAL (NORMAL); REACTIVE LYMPHOCYTES 1 % (0-0); TOTAL CELLS COUNTED 100
[2019-03-07 08:55] LABS: ANISOCYTOSIS SLIGHT; POIKILOCYTOSIS SLIGHT; STOMATOCYTES SLIGHT
[2019-03-07] MEDS ORDERED: methylPREDNISolone 30 MG in Sodium Chloride 0.9% 50 ML IV SCH (09:30)
[2019-03-07] MEDS: ROFLUMILAST 250 MCG PO SCH (09:49)
[2019-03-07] MEDS: Enoxaparin 40 mg Syringe SC SCH (09:51)
[2019-03-07] MEDS: guaiFENesin-DM 600-30 mg ER Tab PO SCH ×2 (09:52→21:35)
--- NOTE | 2019-03-07 10:43 | CP.PCM.PN ---
<Tameka Sierra - Last Filed: 03/07/19 10:52> Subjective - Date & Time of Evaluation Date of Evaluation: 03/07/19 Time of Evaluation: 08:30 - Subjective Subjective: Patient seen and examined this morning with Dr. Hines/Pulmonary Patient was started on high flow yesterday due to hypoxia (ABG reviewed, will increase High flow to 30 this morning) Patient reports improved cough and SOB Denies any other acute events overnight Objective - Vital Signs/Intake and Output Vital Signs (last 24 hours): Temp Pulse Resp BP Pulse Ox 97.7 F 79 18 132/79 92 L 03/07/19 08:26 03/07/19 08:26 03/07/19 08:26 03/07/19 08:26 03/07/19 08:26 - Medications Medications: Current Medications Acetaminophen (Tylenol 325mg Tab) 650 mg PO Q6 PRN PRN Reason: Pain, Mild (1-3) Albuterol (Ventolin Hfa 90 Mcg/Actuation (8 G)) 2 puff INH Q2H PRN PRN Reason: Shortness of Breath Albuterol/Ipratropium (Duoneb 3 Mg/0.5 Mg (3 Ml) Ud) 3 ml INH RQID [facility] Last Admin: 03/07/19 07:24 Dose: 3 ml Enoxaparin Sodium (Lovenox) 40 mg SC DAILY [facility]BARA; Protocol Last Admin: 03/07/19 09:51 Dose: 40 mg Fluticasone Propionate (Flonase) 1 spr BLAIR DAILY [facility] Last Admin: 03/07/19 09:49 Dose: 1 spr Guaifenesin/Dextromethorphan (Mucinex-Dm 600-30 Mg) 1 tab PO Q12 [facility] Last Admin: 03/07/19 09:52 Dose: 1 tab Azithromycin 500 mg/ Sodium (Chloride) 250 mls @ 250 mls/hr IVPB DAILY [facility]; Protocol Last Admin: 03/06/19 12:23 Dose: 250 mls/hr Methylprednisolone (Solu-Medrol) 30 mg IVP Q8H [facility] Last Admin: 03/07/19 09:52 Dose: 30 mg Roflumilast (Daliresp) 250 mcg PO DAILY [facility] Last Admin: 03/07/19 09:49 Dose: 250 mcg - Labs Labs: 03/07/19 04:45 03/07/19 04:45 PT 12.9 Seconds (9.8-13.1) 03/05/19 14:08 INR 1.1 03/05/19 14:08 APTT 34.7 Seconds (25.6-37.1) 03/05/19 14:08 - Constitutional Appears: No Acute Distress - Respiratory Exam Additional comments: Flushed facies noted Memory is intact, gait is not tested, no focal motor weakness, speech is fluent Pharynx is injected and the mucous membranes are moist without exudate Nasal passages are patent bilaterally with septum deviated to the right. No ble eding or exudate. EACs are patent and TMs are intact bilaterally. No dullness on chest percussion. Equal expansion. Breath sounds are well heard bilaterally with scattered expiratory wheezing in both lower lobes. No rales or bronchial breathing. Scattered rhonchi bilaterally. - Cardiovascular Exam Cardiovascular Exam: REGULAR RHYTHM, +S1, +S2 - GI/Abdominal Exam GI & Abdominal Exam: Soft. absent: Tenderness - Extremities Exam Extremities Exam: Full ROM. absent: Calf Tenderness, Joint Swelling, Pedal Edema, Tenderness Additional comments: Annular, non pruritic non erythematous rash on extremities, mainly on extension surface - Back Exam Back Exam: absent: CVA tenderness (L), CVA tenderness (R) - Neurological Exam Neurological Exam: Alert, Awake, Oriented x3 - Psychiatric Exam Psychiatric exam: Normal Affect - Skin Skin Exam: Rash Additional comments: Annular, non pruritic non erythematous rash on extremities, mainly on extension surface Assessment and Plan (1) COPD exacerbation Status: Acute (2) Asthma Status: Acute (3) Hypoxia Assessment & Plan: Patient was started on high flow yesterday due to hypoxia (ABG reviewed, will increase High flow to 30) Continue aerosol therapy Continue parenteral corticosteroids, dose reduced today to 30 Q8H Continue antibiotic therapy in the form of azithromycin Roflumilast 250 g added to the regimen Mucolytics and cough suppression Status: Acute (4) BMI 31.0-31.9,adult Status: Chronic (5) Skin rash Assessment & Plan: Annular, non pruritic non erythematous rash on extremities, mainly on extension surface F/u ANIKET Consult Dermatology, f/u recommendations Status: Acute <Aayush Hines - Last Filed: 03/08/19 11:34> Subjective - Subjective Subjective: The patient was seen together with the resident on rounds in telemetry. The physical exam was discussed and interim events reviewed. Current diagnosis and plan of care was formulated together with the resident. The EMR entry made by the resident accurately reflects this activity. Objective - Vital Signs/Intake and Output Vital Signs (last 24 hours): Temp Pulse Resp BP Pulse Ox 98.3 F 75 18 143/80 91 L 03/08/19 08:00 03/08/19 08:00 03/08/19 11:24 03/08/19 08:00 03/08/19 08:00 - Medications Medications: Current Medications Acetaminophen (Tylenol 325mg Tab) 650 mg PO Q6 PRN PRN Reason: Pain, Mild (1-3) Albuterol (Ventolin Hfa 90 Mcg/Actuation (8 G)) 2 puff INH Q2H PRN PRN Reason: Shortness of Breath Albuterol/Ipratropium (Duoneb 3 Mg/0.5 Mg (3 Ml) Ud) 3 ml INH RQID [facility] Last Admin: 03/08/19 07:47 Dose: 3 ml Enoxaparin Sodium (Lovenox) 40 mg SC DAILY [facility]BAR[facility]; Protocol Last Admin: 03/08/19 10:01 Dose: 40 mg Fluticasone Propionate (Flonase) 1 spr BLAIR DAILY [facility] Last Admin: 03/08/19 10:01 Dose: 1 spr Guaifenesin/Dextromethorphan (Mucinex-Dm 600-30 Mg) 1 tab PO Q12 [facility] Last Admin: 03/08/19 09:59 Dose: 1 tab Azithromycin 500 mg/ Sodium (Chloride) 250 mls @ 250 mls/hr IVPB DAILY [facility]; Protocol Last Admin: 03/08/19 10:02 Dose: 250 mls/hr Methylprednisolone (Solu-Medrol) 30 mg IVP Q12H [facility] Last Admin: 03/08/19 10:00 Dose: 30 mg Roflumilast (Daliresp) 250 mcg PO DAILY [facility] Last Admin: 03/08/19 09:59 Dose: 250 mcg - Labs Labs: 03/07/19 04:45 03/07/19 04:45 PT 12.9 Seconds (9.8-13.1) 03/05/19 14:08 INR 1.1 03/05/19 14:08 APTT 34.7 Seconds (25.6-37.1) 03/05/19 14:08 Assessment and Plan (1) Asthma Status: Chronic (2) COPD exacerbation Status: Acute (3) BMI 31.0-31.9,adult Status: Chronic (4) Hyperglycemia, drug-induced Status: Acute (5) Hypoxia Status: Acute
[2019-03-07] MEDS: Azithromycin 500 MG in Sodium Chloride 0.9% 250 ML IVPB SCH (11:14)
[2019-03-08] MEDS: MethylPREDNISolone 40 mg Vial IVP SCH ×4 (00:17→21:24)
[2019-03-08 04:02] LABS: ABG ALLEN TEST YES; ARTERIAL BLOOD GAS HCO3 29.1 mmol/L (21-28); ARTERIAL BLOOD GAS HEMOGLOBIN 13.7 g/dL (11.7-17.4); ARTERIAL BLOOD GAS O2 CAPACITY 18.6 mL/dL (16-24); ARTERIAL BLOOD GAS O2 CONTENT 17.5 ML/dL (15-23); ARTERIAL BLOOD GAS O2 SAT 94.2 % (95-98); ARTERIAL BLOOD GAS PCO2 45 mm/Hg (35-45); ARTERIAL BLOOD GAS PH 7.44 (7.35-7.45); ARTERIAL BLOOD GAS PO2 62 mm/Hg (80-100)
[2019-03-08] MEDS: Albuterol-Ipratrop 3 mg / 0.5 (3 ml) UD INH SCH ×4 (07:47→19:31)
--- NOTE | 2019-03-08 08:09 | CP.PCM.PN ---
<Norberto Shine - Last Filed: 03/08/19 10:55> Subjective - Date & Time of Evaluation Date of Evaluation: 03/08/19 Time of Evaluation: 07:00 - Subjective Subjective: Patient seen and examined at bedside. No acute event overnight. Patient have no complaints. She report breathing better than yesterday but still need the high flow. Patient is on Highflow 30lit 50 o2 Objective - Vital Signs/Intake and Output Vital Signs (last 24 hours): Temp Pulse Resp BP Pulse Ox 98.3 F 67 16 157/92 H 93 L 03/08/19 05:57 03/08/19 05:57 03/08/19 05:57 03/08/19 05:57 03/08/19 05:57 - Medications Medications: Current Medications Acetaminophen (Tylenol 325mg Tab) 650 mg PO Q6 PRN PRN Reason: Pain, Mild (1-3) Albuterol (Ventolin Hfa 90 Mcg/Actuation (8 G)) 2 puff INH Q2H PRN PRN Reason: Shortness of Breath Albuterol/Ipratropium (Duoneb 3 Mg/0.5 Mg (3 Ml) Ud) 3 ml INH RQID [facility] Last Admin: 03/08/19 07:47 Dose: 3 ml Enoxaparin Sodium (Lovenox) 40 mg SC DAILY [facility]BAR[facility]; Protocol Last Admin: 03/07/19 09:51 Dose: 40 mg Fluticasone Propionate (Flonase) 1 spr BLAIR DAILY [facility] Last Admin: 03/07/19 09:49 Dose: 1 spr Guaifenesin/Dextromethorphan (Mucinex-Dm 600-30 Mg) 1 tab PO Q12 [facility] Last Admin: 03/07/19 21:35 Dose: 1 tab Azithromycin 500 mg/ Sodium (Chloride) 250 mls @ 250 mls/hr IVPB DAILY [facility]BAR[facility]; Pro tocol Last Admin: 03/07/19 11:14 Dose: 250 mls/hr Methylprednisolone (Solu-Medrol) 30 mg IVP Q8H [facility] Last Admin: 03/08/19 00:18 Dose: 30 mg Roflumilast (Daliresp) 250 mcg PO DAILY [facility] Last Admin: 03/07/19 09:49 Dose: 250 mcg - Labs Labs: 03/07/19 04:45 03/07/19 04:45 PT 12.9 Seconds (9.8-13.1) 03/05/19 14:08 INR 1.1 03/05/19 14:08 APTT 34.7 Seconds (25.6-37.1) 03/05/19 14:08 - Constitutional Appears: Well, Non-toxic, No Acute Distress - Head Exam Head Exam: ATRAUMATIC, NORMAL INSPECTION, NORMOCEPHALIC - Eye Exam Eye Exam: EOMI, Normal appearance, PERRL Pupil Exam: NORMAL ACCOMODATION, PERRL - ENT Exam ENT Exam: Mucous Membranes Moist, Normal Exam - Neck Exam Neck Exam: Full ROM, Normal Inspection - Respiratory Exam Respiratory Exam: Rales, Wheezes, NORMAL BREATHING PATTERN - Cardiovascular Exam Cardiovascular Exam: REGULAR RHYTHM, +S1, +S2 - GI/Abdominal Exam GI & Abdominal Exam: Soft, Normal Bowel Sounds - Extremities Exam Extremities Exam: Full ROM, Normal Capillary Refill, Normal Inspection - Neurological Exam Neurological Exam: Alert, Awake, Oriented x3 - Psychiatric Exam Psychiatric exam: Normal Affect, Normal Mood - Skin Skin Exam: Dry, Intact, Normal Color, Warm Assessment and Plan - Assessment and Plan (Free Text) Assessment: 58 YO Female with PMHx of smoking and COPD is admitted for COPD exacerbation. ECho reading EJ 55-60%, transmitral doppler flow pattern is grade 1 abnormal relaxation, LEft Atrium is mild dilated. trace of tricuspid valve regurgitation. RVSP is calculated at 20mmHG X-Ray negative COPD exacerbation On High flow due to persistent hypoxia Flow is on 50 right now ABG PO2 62 ( improved ) Patient symptomatically improved, but still scattered wheezing noted, with flushed face CT no acute infiltrate, no PE Methylprednisone decreased to 30 Continue duonab RQID Continue azithromycin for COPD exacerbation continue Roflumilast 250mcg Continue albuterol HFA Alpha 1 antitrypsin 170 Continue with home meds F/U cover for nebulizer for outpatient Dr Hines on case, follow up recommendation Skin rash Erythema on extremities IGE in 957 Consult Dermatology, f/u recommendations Hx of smoking -stopped smoking DVT prolx -Lovenox SC <DuttonFernando kiran D - Last Filed: 03/08/19 13:22> Objective - Vital Signs/Intake and Output Vital Signs (last 24 hours): Temp Pulse Resp BP Pulse Ox 97.4 F L 81 18 136/86 92 L 05/22/19 12:00 03/08/19 12:00 03/08/19 12:00 03/08/19 12:00 03/08/19 12:00 - Medications Medications: Current Medications Acetaminophen (Tylenol 325mg Tab) 650 mg PO Q6 PRN PRN Reason: Pain, Mild (1-3) Albuterol (Ventolin Hfa 90 Mcg/Actuation (8 G)) 2 puff INH Q2H PRN PRN Reason: Shortness of Breath Albuterol/Ipratropium (Duoneb 3 Mg/0.5 Mg (3 Ml) Ud) 3 ml INH RQID [facility] Last Admin: 03/08/19 11:44 Dose: 3 ml Enoxaparin Sodium (Lovenox) 40 mg SC DAILY [facility]; Protocol Last Admin: 03/08/19 10:01 Dose: 40 mg Fluticasone Propionate (Flonase) 1 spr BLAIR DAILY [facility] Last Admin: 03/08/19 10:01 Dose: 1 spr Guaifenesin/Dextromethorphan (Mucinex-Dm 600-30 Mg) 1 tab PO Q12 [facility] Last Admin: 03/08/19 09:59 Dose: 1 tab Azithromycin 500 mg/ Sodium (Chloride) 250 mls @ 250 mls/hr IVPB DAILY [facility]; Protocol Last Admin: 03/08/19 10:02 Dose: 250 mls/hr Methylprednisolone (Solu-Medrol) 30 mg IVP Q12H [facility] Last Admin: 03/08/19 10:00 Dose: 30 mg Roflumilast (Daliresp) 250 mcg PO DAILY [facility] Last Admin: 03/08/19 09:59 Dose: 250 mcg - Labs Labs: 03/07/19 04:45 03/07/19 04:45 PT 12.9 Seconds (9.8-13.1) 03/05/19 14:08 INR 1.1 03/05/19 14:08 APTT 34.7 Seconds (25.6-37.1) 03/05/19 14:08 Attending/Attestation - Attestation I have personally seen and examined this patient.: Yes I have fully participated in the care of the patient.: Yes I have reviewed all pertinent clinical information, including history, physical exam and plan: Yes Notes (Text): 03/08/19 13:20 Patient seen and examined with resident. Case discussed and agreed with assessment. Patient has been improving but still needs high flow O2.
[2019-03-08] MEDS: ROFLUMILAST 250 MCG PO SCH (09:59)
[2019-03-08] MEDS: guaiFENesin-DM 600-30 mg ER Tab PO SCH ×2 (09:59→21:24)
[2019-03-08] MEDS: Enoxaparin 40 mg Syringe SC SCH (10:01)
[2019-03-08] MEDS: Azithromycin 500 MG in Sodium Chloride 0.9% 250 ML IVPB SCH (10:02)
--- NOTE | 2019-03-08 10:11 | CP.PCM.PN ---
<Tameka Sierra - Last Filed: 03/08/19 10:15> Subjective - Date & Time of Evaluation Date of Evaluation: 03/08/19 Time of Evaluation: 09:00 - Subjective Subjective: Patient seen and examined this morning with Dr. Hines/Pulmonary Continues to be hypoxic on high flow (Slow improvement) Patient reports improved cough and SOB Denies any other acute events overnight Objective - Vital Signs/Intake and Output Vital Signs (last 24 hours): Temp Pulse Resp BP Pulse Ox 98.3 F 75 18 143/80 91 L 03/08/19 08:00 03/08/19 08:00 03/08/19 08:00 03/08/19 08:00 03/08/19 08:00 - Medications Medications: Current Medications Acetaminophen (Tylenol 325mg Tab) 650 mg PO Q6 PRN PRN Reason: Pain, Mild (1-3) Albuterol (Ventolin Hfa 90 Mcg/Actuation (8 G)) 2 puff INH Q2H PRN PRN Reason: Shortness of Breath Albuterol/Ipratropium (Duoneb 3 Mg/0.5 Mg (3 Ml) Ud) 3 ml INH RQID [facility] Last Admin: 03/08/19 07:47 Dose: 3 ml Enoxaparin Sodium (Lovenox) 40 mg SC DAILY [facility]; Protocol Last Admin: 03/08/19 10:01 Dose: 40 mg Fluticasone Propionate (Flonase) 1 spr BLAIR DAILY [facility] Last Admin: 03/08/19 10:01 Dose: 1 spr Guaifenesin/Dextromethorphan (Mucinex-Dm 600-30 Mg) 1 tab PO Q12 [facility] Last Admin: 03/08/19 09:59 Dose: 1 tab Azithromycin 500 mg/ Sodium (Chloride) 250 mls @ 250 mls/hr IVPB DAILY [facility]; Protocol Last Admin: 03/08/19 10:02 Dose: 250 mls/hr Methylprednisolone (Solu-Medrol) 30 mg IVP Q12H [facility] Last Admin: 03/08/19 10:00 Dose: 30 mg Roflumilast (Daliresp) 250 mcg PO DAILY [facility] Last Admin: 03/08/19 09:59 Dose: 250 mcg - Labs Labs: 03/07/19 04:45 03/07/19 04:45 PT 12.9 Seconds (9.8-13.1) 03/05/19 14:08 INR 1.1 03/05/19 14:08 APTT 34.7 Seconds (25.6-37.1) 03/05/19 14:08 - Constitutional Appears: No Acute Distress - Eye Exam Eye Exam: Normal appearance - Respiratory Exam Additional comments: Flushed facies noted Memory is intact, gait is not tested, no focal motor weakness, speech is fluent Pharynx is injected and the mucous membranes are moist without exudate Nasal passages are patent bilaterally with septum deviated to the right. No bleeding or exudate. EACs are patent and TMs are intact bilaterally. No dullness on chest percussion. Equal expansion. Breath sounds are well heard bilaterally with scattered expiratory wheezing in both lower lobes. No rales or bronchial breathing. Scattered rhonchi bilaterally. - Cardiovascular Exam Cardiovascular Exam: REGULAR RHYTHM, +S1, +S2 - GI/Abdominal Exam GI & Abdominal Exam: Soft. absent: Tenderness - Extremities Exam Additional comments: Annular, non pruritic non erythematous rash on extremities, mainly on extension surface - Back Exam Back Exam: absent: CVA tenderness (L), CVA tenderness (R) - Neurological Exam Neurological Exam: Alert, Awake, CN II-XII Intact, Oriented x3 - Psychiatric Exam Psychiatric exam: Normal Affect - Skin Additional comments: Annular, non pruritic non erythematous rash on extremities, mainly on extension surface Assessment and Plan (1) COPD exacerbation Status: Acute (2) Asthma Assessment & Plan: mild intermittent Status: Chronic (3) Hypoxia Assessment & Plan: Remains Hypoxic on HF (slow improvement, will consider VQ scan, CT if no improvement) Continue aerosol therapy Continue parenteral corticosteroids, 30 Q8H Continue antibiotic therapy in the form of azithromycin Roflumilast 250 g added to the regimen Mucolytics and cough suppression Status: Acute (4) BMI 31.0-31.9,adult Status: Chronic (5) Skin rash Assessment & Plan: Annular, non pruritic non erythematous rash on extremities, mainly on extension surface F/u ANIKET Possible outpatient management with Dermatology Status: Acute (6) Elevated IgE level Assessment & Plan: Possible Allergic componenent with her Asthma and COPD exacerbation Status: Acute <Aayush Hines - Last Filed: 03/10/19 10:20> Subjective - Subjective Subjective: Seen and examined together with the resident. Interim events and physical findings were reviewed. Current diagnosis and plan of care were discussed. The entry made by the resident in the EMR accurately reflects this activity. Objective - Vital Signs/Intake and Output Vital Signs (last 24 hours): Temp Pulse Resp BP Pulse Ox 97.4 F L 99 H 20 137/84 94 L 03/10/19 08:08 03/10/19 08:08 03/10/19 08:08 03/10/19 08:08 03/10/19 08:08 - Medications Medications: Current Medications Acetaminophen (Tylenol 325mg Tab) 650 mg PO Q6 PRN PRN Reason: Pain, Mild (1-3) Albuterol (Ventolin Hfa 90 Mcg/Actuation (8 G)) 2 puff INH Q2H PRN PRN Reason: Shortness of Breath Albuterol/Ipratropium (Duoneb 3 Mg/0.5 Mg (3 Ml) Ud) 3 ml INH RQID [facility] Last Admin: 03/10/19 07:52 Dose: 3 ml Enoxaparin Sodium (Lovenox) 40 mg SC DAILY [facility]BARA; Protocol Last Admin: 03/09/19 09:10 Dose: 40 mg Fluticasone Propionate (Flonase) 1 spr BLAIR DAILY [facility] Last Admin: 03/09/19 09:09 Dose: 1 spr Guaifenesin/Dextromethorphan (Mucinex-Dm 600-30 Mg) 1 tab PO Q12 [facility] Last Admin: 03/09/19 21:23 Dose: 1 tab Azithromycin 500 mg/ Sodium (Chloride) 250 mls @ 250 mls/hr IVPB DAILY [facility]BAR[facility]; Pro tocol Last Admin: 03/09/19 09:11 Dose: 250 mls/hr Methylprednisolone (Solu-Medrol) 30 mg IVP DAILY [facility] Last Admin: 03/09/19 09:10 Dose: 30 mg Montelukast Sodium (Singulair) 10 mg PO HS [facility]A Last Admin: 03/09/19 21:23 Dose: 10 mg Roflumilast (Daliresp) 250 mcg PO DAILY [facility] Last Admin: 03/09/19 09:11 Dose: 250 mcg - Labs Labs: 03/10/19 05:10 03/10/19 05:10 PT 12.9 Seconds (9.8-13.1) 03/05/19 14:08 INR 1.1 03/05/19 14:08 APTT 34.7 Seconds (25.6-37.1) 03/05/19 14:08 Assessment and Plan (1) Asthma Status: Chronic (2) COPD exacerbation Status: Acute (3) BMI 31.0-31.9,adult Status: Chronic (4) Hyperglycemia, drug-induced Status: Acute (5) Hypoxia Status: Acute
[2019-03-08 14:11] LABS: D.FARINAE (D2) IGE 3.68 kU/L (<0.10); OAK (T7) IGE 0.15 kU/L (<0.10)
[2019-03-09 06:08] LABS: BASO % 0.1 % (0.0-2.0); HEMOGLOBIN 13.6 g/dL (12.0-16.0); LYMPH # 0.8 K/uL (1.0-4.3); LYMPH % 5.7 % (20.0-40.0); MEAN CELL VOLUME 102.4 fl (81.0-99.0); MEAN CORPUSCULAR HEMOGLOBIN 34.6 pg (27.0-31.0); MEAN CORPUSCULAR HGB CONC 33.8 g/dL (33.0-37.0); MEAN PLATELET VOLUME 8.7 fl (7.2-11.7); MONO # 0.8 K/uL (0.0-0.8); MONO % 6.3 % (0.0-10.0); NEUT # 11.8 K/uL (1.8-7.0); NEUT % 87.9 % (50.0-75.0); RBC 3.94 Mil/uL (3.80-5.20); RED CELL DISTRIBUTION WIDTH 13.4 % (11.5-14.5); WHITE BLOOD COUNT 13.4 K/uL (4.8-10.8)
[2019-03-09 06:31] LABS: ALB/GLOB RATIO 1.2 (1.0-2.1); ALBUMIN 3.7 g/dL (3.5-5.0); ALT/SGPT 45 U/L (9-52); AST/SGOT 30 U/L (14-36); BLOOD UREA NITROGEN 24 mg/dl (7-17); CALCIUM 8.3 mg/dL (8.4-10.2); GFR NON-AFRICAN AMERICAN > 60
--- NOTE | 2019-03-09 07:37 | CP.PCM.PN ---
<Norberto Shine - Last Filed: 03/09/19 10:32> Subjective - Date & Time of Evaluation Date of Evaluation: 03/09/19 Time of Evaluation: 07:00 - Subjective Subjective: Patient seen and examined at bedside. No acute event overnight. Patient was tearful today due to wanting to go home. Otherwise patient have no complains. Objective - Vital Signs/Intake and Output Vital Signs (last 24 hours): Temp Pulse Resp BP Pulse Ox 98 F 74 20 151/93 H 93 L 03/09/19 04:25 03/09/19 04:25 03/09/19 07:31 03/09/19 04:25 03/09/19 04:25 - Medications Medications: Current Medications Acetaminophen (Tylenol 325mg Tab) 650 mg PO Q6 PRN PRN Reason: Pain, Mild (1-3) Albuterol (Ventolin Hfa 90 Mcg/Actuation (8 G)) 2 puff INH Q2H PRN PRN Reason: Shortness of Breath Albuterol/Ipratropium (Duoneb 3 Mg/0.5 Mg (3 Ml) Ud) 3 ml INH RQID [facility] Last Admin: 03/08/19 19:31 Dose: 3 ml Enoxaparin Sodium (Lovenox) 40 mg SC DAILY [facility]BARA; Protocol Last Admin: 03/08/19 10:01 Dose: 40 mg Fluticasone Propionate (Flonase) 1 spr BLAIR DAILY [facility] Last Admin: 03/08/19 10:01 Dose: 1 spr Guaifenesin/Dextromethorphan (Mucinex-Dm 600-30 Mg) 1 tab PO Q12 [facility] Last Admin: 03/08/19 21:24 Dose: 1 tab Azithromycin 500 mg/ Sodium (Chloride) 250 mls @ 250 mls/hr IVPB DAILY [facility]; Protocol Last Admin: 03/08/19 10:02 Dose: 250 mls/hr Methylprednisolone (Solu-Medrol) 30 mg IVP Q12H [facility] Last Admin: 03/08/19 21:24 Dose: 30 mg Roflumilast (Daliresp) 250 mcg PO DAILY [facility] Last Admin: 03/08/19 09:59 Dose: 250 mcg - Labs Labs: 03/09/19 05:10 03/09/19 05:10 PT 12.9 Seconds (9.8-13.1) 03/05/19 14:08 INR 1.1 03/05/19 14:08 APTT 34.7 Seconds (25.6-37.1) 03/05/19 14:08 - Constitutional Appears: Well, Non-toxic, No Acute Distress - Head Exam Head Exam: ATRAUMATIC, NORMAL INSPECTION, NORMOCEPHALIC - Eye Exam Eye Exam: EOMI, Normal appearance, PERRL Pupil Exam: NORMAL ACCOMODATION, PERRL - ENT Exam ENT Exam: Mucous Membranes Moist, Normal Exam - Neck Exam Neck Exam: Full ROM, Normal Inspection - Respiratory Exam Respiratory Exam: Rales, Wheezes, NORMAL BREATHING PATTERN - Cardiovascular Exam Cardiovascular Exam: REGULAR RHYTHM, +S1, +S2 - GI/Abdominal Exam GI & Abdominal Exam: Soft, Normal Bowel Sounds - Extremities Exam Extremities Exam: Full ROM, Normal Capillary Refill, Normal Inspection - Back Exam Back Exam: NORMAL INSPECTION - Neurological Exam Neurological Exam: Alert, Awake, Oriented x3 - Psychiatric Exam Psychiatric exam: Normal Affect, Normal Mood - Skin Skin Exam: Dry, Intact, Rash, Warm Assessment and Plan - Assessment and Plan (Free Text) Plan: 58 YO Female with PMHx of smoking and COPD is admitted for COPD exacerbation. ECho reading EJ 55-60%, transmitral doppler flow pattern is grade 1 abnormal relaxation, LEft Atrium is mild dilated. trace of tricuspid valve regurgitation. RVSP is calculated at 20mmHG X-Ray negative COPD exacerbation On High flow due to persistent hypoxia Flow is on 50 right now ABG PO2 62 Patient symptomatically improved, but still scattered wheezing noted, with flushed face CT no acute infiltrate, no PE Methylprednisone 30 Continue duonab RQID Continue azithromycin for COPD exacerbation continue Roflumilast 250mcg Continue albuterol HFA Q2H Guaifenasin Q12h Singulair 10mg Alpha 1 antitrypsin 170 Azithromycin 500mg Daily Continue with home meds V/Q scan will follow result F/U cover for nebulizer for outpatient Dr Hines on case, follow up recommendation Skin rash Erythema on extremities IGE in 957 Multiple Allergen positive Consult Dermatology, f/u recommendations Hx of smoking -stopped smoking DVT prolx -Lovenox SC <Dutton,Fernando D - Last Filed: 03/09/19 12:44> Objective - Vital Signs/Intake and Output Vital Signs (last 24 hours): Temp Pulse Resp BP Pulse Ox 98.2 F 89 18 133/83 92 L 03/09/19 12:36 03/09/19 12:36 03/09/19 12:36 03/09/19 12:36 03/09/19 12:36 - Medications Medications: Current Medications Acetaminophen (Tylenol 325mg Tab) 650 mg PO Q6 PRN PRN Reason: Pain, Mild (1-3) Albuterol (Ventolin Hfa 90 Mcg/Actuation (8 G)) 2 puff INH Q2H PRN PRN Reason: Shortness of Breath Albuterol/Ipratropium (Duoneb 3 Mg/0.5 Mg (3 Ml) Ud) 3 ml INH RQID [facility] Last Admin: 03/09/19 11:09 Dose: 3 ml Enoxaparin Sodium (Lovenox) 40 mg SC DAILY BARBARA; Protocol Last Admin: 03/09/19 09:10 Dose: 40 mg Fluticasone Propionate (Flonase) 1 spr BLAIR DAILY [facility] Last Admin: 03/09/19 09:09 Dose: 1 spr Guaifenesin/Dextromethorphan (Mucinex-Dm 600-30 Mg) 1 tab PO Q12 [facility] Last Admin: 03/09/19 09:08 Dose: 1 tab Azithromycin 500 mg/ Sodium (Chloride) 250 mls @ 250 mls/hr IVPB DAILY [facility]; Protocol Last Admin: 03/09/19 09:11 Dose: 250 mls/hr Methylprednisolone (Solu-Medrol) 30 mg IVP DAILY [facility] Last Admin: 03/09/19 09:10 Dose: 30 mg Montelukast Sodium (Singulair) 10 mg PO HS BARBARA Roflumilast (Daliresp) 250 mcg PO DAILY [facility]BARA Last Admin: 03/09/19 09:11 Dose: 250 mcg - Labs Labs: 03/09/19 05:10 03/09/19 05:10 PT 12.9 Seconds (9.8-13.1) 03/05/19 14:08 INR 1.1 03/05/19 14:08 APTT 34.7 Seconds (25.6-37.1) 03/05/19 14:08 Attending/Attestation - Attestation I have personally seen and examined this patient.: Yes I have fully participated in the care of the patient.: Yes I have reviewed all pertinent clinical information, including history, physical exam and plan: Yes Notes (Text): 03/09/19 12:44 Patient seen and examined with resident. Case discussed and agreed with assessment.
[2019-03-09] MEDS: Albuterol-Ipratrop 3 mg / 0.5 (3 ml) UD INH SCH ×4 (08:05→19:26)
--- NOTE | 2019-03-09 09:06 | CP.PCM.PN ---
Subjective - Date & Time of Evaluation Date of Evaluation: 03/09/19 Time of Evaluation: 09:06 Objective - Vital Signs/Intake and Output Vital Signs (last 24 hours): Temp Pulse Resp BP Pulse Ox 98.0 F 89 18 137/80 90 L 03/09/19 08:00 03/09/19 08:00 03/09/19 08:00 03/09/19 08:00 03/09/19 08:00 - Medications Medications: Current Medications Acetaminophen (Tylenol 325mg Tab) 650 mg PO Q6 PRN PRN Reason: Pain, Mild (1-3) Albuterol (Ventolin Hfa 90 Mcg/Actuation (8 G)) 2 puff INH Q2H PRN PRN Reason: Shortness of Breath Albuterol/Ipratropium (Duoneb 3 Mg/0.5 Mg (3 Ml) Ud) 3 ml INH RQID [facility] Last Admin: 03/08/19 19:31 Dose: 3 ml Enoxaparin Sodium (Lovenox) 40 mg SC DAILY BARBARA; Protocol Last Admin: 03/08/19 10:01 Dose: 40 mg Fluticasone Propionate (Flonase) 1 spr BLAIR DAILY [facility] Last Admin: 03/08/19 10:01 Dose: 1 spr Guaifenesin/Dextromethorphan (Mucinex-Dm 600-30 Mg) 1 tab PO Q12 [facility] Last Admin: 03/08/19 21:24 Dose: 1 tab Azithromycin 500 mg/ Sodium (Chloride) 250 mls @ 250 mls/hr IVPB DAILY [facility]BAR[facility]; Protocol Last Admin: 03/08/19 10:02 Dose: 250 mls/hr Methylprednisolone (Solu-Medrol) 30 mg IVP DAILY [facility] Roflumilast (Daliresp) 250 mcg PO DAILY [facility] Last Admin: 03/08/19 09:59 Dose: 250 mcg - Labs Labs: 03/09/19 05:10 03/09/19 05:10 PT 12.9 Seconds (9.8-13.1) 03/05/19 14:08 INR 1.1 03/05/19 14:08 APTT 34.7 Seconds (25.6-37.1) 03/05/19 14:08 Assessment and Plan (1) Asthma Status: Chronic (2) COPD exacerbation Status: Acute (3) BMI 31.0-31.9,adult Status: Chronic (4) Hyperglycemia, drug-induced Status: Acute (5) Hypoxia Status: Acute
[2019-03-09] MEDS: guaiFENesin-DM 600-30 mg ER Tab PO SCH ×2 (09:08→21:23)
[2019-03-09] MEDS: MethylPREDNISolone 40 mg Vial IVP SCH (09:10)
[2019-03-09] MEDS: Enoxaparin 40 mg Syringe SC SCH (09:10)
[2019-03-09] MEDS: Azithromycin 500 MG in Sodium Chloride 0.9% 250 ML IVPB SCH (09:11)
[2019-03-09] MEDS: ROFLUMILAST 250 MCG PO SCH (09:11)
[2019-03-09] MEDS ORDERED: Sodium Chloride 3% for Inhalation 4 ML VIAL.NEB IH PRN (10:23)
--- NOTE | 2019-03-09 10:59 | CP.PCM.PN ---
<Tameka Sierra - Last Filed: 03/09/19 11:06> Subjective - Date & Time of Evaluation Date of Evaluation: 03/09/19 Time of Evaluation: 08:00 - Subjective Subjective: Patient seen and examined this morning with Dr. Hines/Pulmonary Continues to be hypoxic on high flow (Slow improvement, unusual response to HF) Patient reports improved cough and SOB Denies any other acute events overnight Objective - Vital Signs/Intake and Output Vital Signs (last 24 hours): Temp Pulse Resp BP Pulse Ox 98.0 F 89 18 137/80 90 L 03/09/19 08:00 03/09/19 08:00 03/09/19 08:00 03/09/19 08:00 03/09/19 08:00 - Medications Medications: Current Medications Acetaminophen (Tylenol 325mg Tab) 650 mg PO Q6 PRN PRN Reason: Pain, Mild (1-3) Albuterol (Ventolin Hfa 90 Mcg/Actuation (8 G)) 2 puff INH Q2H PRN PRN Reason: Shortness of Breath Albuterol/Ipratropium (Duoneb 3 Mg/0.5 Mg (3 Ml) Ud) 3 ml INH RQID [facility] Last Admin: 03/08/19 19:31 Dose: 3 ml Enoxaparin Sodium (Lovenox) 40 mg SC DAILY [facility]; Protocol Last Admin: 03/09/19 09:10 Dose: 40 mg Fluticasone Propionate (Flonase) 1 spr BLAIR DAILY [facility] Last Admin: 03/09/19 09:09 Dose: 1 spr Guaifenesin/Dextromethorphan (Mucinex-Dm 600-30 Mg) 1 tab PO Q12 [facility] Last Admin: 03/09/19 09:08 Dose: 1 tab Azithromycin 500 mg/ Sodium (Chloride) 250 mls @ 250 mls/hr IVPB DAILY [facility]; Protocol Last Admin: 03/09/19 09:11 Dose: 250 mls/hr Methylprednisolone (Solu-Medrol) 30 mg IVP DAILY [facility] Last Admin: 03/09/19 09:10 Dose: 30 mg Montelukast Sodium (Singulair) 10 mg PO HS [facility] Roflumilast (Daliresp) 250 mcg PO DAILY [facility] Last Admin: 03/09/19 09:11 Dose: 250 mcg - Labs Labs: 03/09/19 05:10 03/09/19 05:10 PT 12.9 Seconds (9.8-13.1) 03/05/19 14:08 INR 1.1 03/05/19 14:08 APTT 34.7 Seconds (25.6-37.1) 03/05/19 14:08 - Constitutional Appears: No Acute Distress - Head Exam Head Exam: NORMAL INSPECTION - Eye Exam Eye Exam: Normal appearance - ENT Exam ENT Exam: Mucous Membranes Moist - Respiratory Exam Additional comments: Flushed facies noted Memory is intact, gait is not tested, no focal motor weakness, speech is fluent Pharynx is injected and the mucous membranes are moist without exudate Nasal passages are patent bilaterally with septum deviated to the right. No bleeding or exudate. EACs are patent and TMs are intact bilaterally. No dullness on chest percussion. Equal expansion. Breath sounds are well heard bilaterally with scattered expiratory wheezing in both lower lobes/improved. No rales or bronchial breathing. Scattered rhonchi bilaterally/improved - Cardiovascular Exam Cardiovascular Exam: REGULAR RHYTHM, +S1, +S2 - GI/Abdominal Exam GI & Abdominal Exam: Soft, Normal Bowel Sounds. absent: Tenderness - Extremities Exam Additional comments: Annular, non pruritic non erythematous rash on extremities, mainly on extension surface - Back Exam Back Exam: NORMAL INSPECTION - Neurological Exam Neurological Exam: Alert, Awake, CN II-XII Intact, Oriented x3 - Psychiatric Exam Psychiatric exam: Normal Affect - Skin Additional comments: Annular, non pruritic non erythematous rash on extremities, mainly on extension surface Assessment and Plan (1) COPD exacerbation Assessment & Plan: Changed Corticosteroids to 30mg dailt, possible PO from tomorrow Status: Acute (2) Asthma Assessment & Plan: Mild intermittent Status: Chronic (3) Hypoxia Assessment & Plan: Remains Hypoxic on HF Spo2 around 92 likely due to ventilation perfusion mismatch (slow improvement/unusual response to HF) Get CXR today Will change to NC this morning to keep Sp02 > 88 Will get V/Q Scan this morning Continue aerosol therapy Continue parenteral corticosteroids, decreased to 30mg daily Continue antibiotic therapy in the form of azithromycin Roflumilast 250 g added to the regimen Mucolytics and cough suppression Singular added this morning F/u sputum Cx Status: Acute (4) BMI 31.0-31.9,adult Status: Chronic (5) Skin rash Assessment & Plan: Annular, non pruritic non erythematous rash on extremities, mainly on extension surface F/u ANIKET Possible outpatient management with Dermatology Status: Chronic (6) Elevated IgE level Assessment & Plan: IGE in 957 Multiple Allergen positive in profile Possible Allergic component with her Asthma and COPD exacerbation Outpatient management with her health communications specialist Status: Acute <Aayush Hines - Last Filed: 03/10/19 07:40> Subjective - Subjective Subjective: Seen and examined together with the resident on rounds. Findings were discussed and plan of care was formulated. Entry in the EMR made by the resident was reviewed and is accurate. Objective - Vital Signs/Intake and Output Vital Signs (last 24 hours): Temp Pulse Resp BP Pulse Ox 98.2 F 95 H 18 126/89 97 03/10/19 05:10 03/10/19 05:10 03/10/19 05:10 03/10/19 05:10 03/10/19 05:10 - Medications Medications: Current Medications Acetaminophen (Tylenol 325mg Tab) 650 mg PO Q6 PRN PRN Reason: Pain, Mild (1-3) Albuterol (Ventolin Hfa 90 Mcg/Actuation (8 G)) 2 puff INH Q2H PRN PRN Reason: Shortness of Breath Albuterol/Ipratropium (Duoneb 3 Mg/0.5 Mg (3 Ml) Ud) 3 ml INH RQID [facility] Last Admin: 03/09/19 19:26 Dose: 3 ml Enoxaparin Sodium (Lovenox) 40 mg SC DAILY [facility]; Protocol Last Admin: 03/09/19 09:10 Dose: 40 mg Fluticasone Propionate (Flonase) 1 spr BLAIR DAILY [facility] Last Admin: 03/09/19 09:09 Dose: 1 spr Guaifenesin/Dextromethorphan (Mucinex-Dm 600-30 Mg) 1 tab PO Q12 [facility] Last Admin: 03/09/19 21:23 Dose: 1 tab Azithromycin 500 mg/ Sodium (Chloride) 250 mls @ 250 mls/hr IVPB DAILY [facility]; P rotocol Last Admin: 03/09/19 09:11 Dose: 250 mls/hr Methylprednisolone (Solu-Medrol) 30 mg IVP DAILY [facility] Last Admin: 03/09/19 09:10 Dose: 30 mg Montelukast Sodium (Singulair) 10 mg PO HS [facility] Last Admin: 03/09/19 21:23 Dose: 10 mg Roflumilast (Daliresp) 250 mcg PO DAILY [facility] Last Admin: 03/09/19 09:11 Dose: 250 mcg - Labs Labs: 03/10/19 05:10 03/10/19 05:10 PT 12.9 Seconds (9.8-13.1) 03/05/19 14:08 INR 1.1 03/05/19 14:08 APTT 34.7 Seconds (25.6-37.1) 03/05/19 14:08 Assessment and Plan (1) Asthma Status: Chronic (2) COPD exacerbation Status: Acute (3) BMI 31.0-31.9,adult Status: Chronic (4) Hyperglycemia, drug-induced Status: Acute (5) Hypoxia Status: Acute
--- NOTE | 2019-03-09 13:06 | RAD ---
Date of service: 03/09/2019 HISTORY: Hypoxia COMPARISON: Comparison made with chest radiograph and CTA chest both dated 03/05/2019. TECHNIQUE: Chest PA and lateral views FINDINGS: LUNGS: There are bibasilar atelectatic changes left greater than right.. Minimal centrilobular emphysematous changes less well seen as compared to high-resolution CT chest PLEURA: No significant pleural effusion identified. No pneumothorax apparent. CARDIOVASCULAR: No aortic atherosclerotic calcification present. Heart appears enlarged.. No pulmonary vascular congestion. OSSEOUS STRUCTURES: Mild multilevel degenerative spondylosis of the thoracic spine. VISUALIZED UPPER ABDOMEN: Normal. OTHER FINDINGS: None. IMPRESSION: There are bibasilar atelectatic changes left greater than right.. Minimal centrilobular emphysematous changes less well seen as compared to high-resolution CT chest
--- NOTE | 2019-03-09 15:07 | NM ---
Date of service: 03/09/2019 COMPARISON: Chest x-ray 03/09/2019 TECHNIQUE: 40.380 mCi technetium 99-m DTPA aerosol. 5.077 mCI technetium 99-m MAA administered intravenously. FINDINGS: VENTILATION COMPONENT: The ventilation scan is grossly limited due to extensive central tracheobronchial deposition of the radiopharmaceutical. PERFUSION COMPONENT: There is a moderate to large perfusion defect in the right lower lobe. This cannot be compared to the perfusion scan due to limitation noted above. Therefore, this is an indeterminate study. No other significant perfusion defect is appreciated elsewhere. IMPRESSION: Indeterminateexamination. See above.
[2019-03-10 05:58] LABS: MEAN CELL VOLUME 102.7 fl (81.0-99.0); MEAN CORPUSCULAR HEMOGLOBIN 34.9 pg (27.0-31.0); RBC 4.01 Mil/uL (3.80-5.20); RED CELL DISTRIBUTION WIDTH 13.9 % (11.5-14.5); WHITE BLOOD COUNT 12.2 K/uL (4.8-10.8)
[2019-03-10 06:05] LABS: ALB/GLOB RATIO 1.1 (1.0-2.1); ALBUMIN 3.6 g/dL (3.5-5.0); ALT/SGPT 49 U/L (9-52); AST/SGOT 35 U/L (14-36); BLOOD UREA NITROGEN 25 mg/dl (7-17); CALCIUM 8.6 mg/dL (8.4-10.2); GFR NON-AFRICAN AMERICAN > 60
[2019-03-10] MEDS: Albuterol-Ipratrop 3 mg / 0.5 (3 ml) UD INH SCH ×3 (07:52→15:34)
[2019-03-10 08:09] VITALS: RESP 20; O2SAT 94
[2019-03-10] MEDS ORDERED: Potassium Chloride 20 mEq ER Tab PO ONE (08:28)
[2019-03-10] MEDS: Azithromycin 500 MG in Sodium Chloride 0.9% 250 ML IVPB SCH (10:37)
[2019-03-10] MEDS: Enoxaparin 40 mg Syringe SC SCH (10:38)
[2019-03-10] MEDS: ROFLUMILAST 250 MCG PO SCH (10:38)
[2019-03-10] MEDS: MethylPREDNISolone 40 mg Vial IVP SCH (10:39)
[2019-03-10] MEDS: guaiFENesin-DM 600-30 mg ER Tab PO SCH (10:39)
--- NOTE | 2019-03-10 11:03 | CP.PCM.PN ---
Subjective - Date & Time of Evaluation Date of Evaluation: 03/10/19 Time of Evaluation: 10:55 - Subjective Subjective: Seen on rounds in telemetry. Has been able to maintain adequate SpO2 at 94% using nasal oxygen at 3LPM. SpO2 recorded on room air was only 78% when checked today. Feeling improved on current regimen. Able to breathe more deeply, and now having sputum expectoration (green). Less coughing, able to sleep fairly well overnight. Flushed facies, less pronounced. Trace dependant edema, N=no cyanosis, no calf tenderness. Pharynx is pink and moist w/o exudate. Neck is supple and trachea midline. Breath sounds are still diminished bilaterally, but improved. No audible wheezes, rales or bronchial breath sounds. Heart remains mildly tachycardic at 110BPM. Arrange for home O2 at 2.5LPM continuous. Symbicort 160/4.5, 2 puffs BID. Ventoilin HFA, 2 puffs Q4H prn. Daliresp 250mcg POOD. Azithromycin 250MG POOD. Spiriva Respimat 2.5MG, 2 puffs OD. Prednisone 10MG BID with tapering schedule. Office follow up next week. Objective - Vital Signs/Intake and Output Vital Signs (last 24 hours): Temp Pulse Resp BP Pulse Ox 97.4 F L 99 H 20 137/84 94 L 03/10/19 08:08 03/10/19 08:08 03/10/19 08:08 03/10/19 08:08 03/10/19 08:08 - Medications Medications: Current Medications Acetaminophen (Tylenol 325mg Tab) 650 mg PO Q6 PRN PRN Reason: Pain, Mild (1-3) Albuterol (Ventolin Hfa 90 Mcg/Actuation (8 G)) 2 puff INH Q2H PRN PRN Reason: Shortness of Breath Albuterol/Ipratropium (Duoneb 3 Mg/0.5 Mg (3 Ml) Ud) 3 ml INH RQID [facility] Last Admin: 03/10/19 07:52 Dose: 3 ml Enoxaparin Sodium (Lovenox) 40 mg SC DAILY [facility]; Protocol Last Admin: 03/10/19 10:38 Dose: 40 mg Fluticasone Propionate (Flonase) 1 spr BLAIR DAILY [facility] Last Admin: 03/10/19 10:40 Dose: 1 spr Guaifenesin/Dextromethorphan (Mucinex-Dm 600-30 Mg) 1 tab PO Q12 [facility] Last Admin: 03/10/19 10:39 Dose: 1 tab Azithromycin 500 mg/ Sodium (Chloride) 250 mls @ 250 mls/hr IVPB DAILY [facility]; Protocol Last Admin: 03/10/19 10:37 Dose: 250 mls/hr Methylprednisolone (Solu-Medrol) 30 mg IVP DAILY [facility] Last Admin: 03/10/19 10:39 Dose: 30 mg Montelukast Sodium (Singulair) 10 mg PO HS [facility] Last Admin: 03/09/19 21:23 Dose: 10 mg Roflumilast (Daliresp) 250 mcg PO DAILY [facility] Last Admin: 03/10/19 10:38 Dose: 250 mcg - Labs Labs: 03/10/19 05:10 03/10/19 05:10 PT 12.9 Seconds (9.8-13.1) 03/05/19 14:08 INR 1.1 03/05/19 14:08 APTT 34.7 Seconds (25.6-37.1) 03/05/19 14:08 Assessment and Plan (1) Asthma Status: Chronic (2) COPD exacerbation Status: Acute (3) BMI 31.0-31.9,adult Status: Chronic (4) Hyperglycemia, drug-induced Status: Acute (5) Hypoxia Status: Acute
--- NOTE | 2019-03-10 12:26 | US ---
Date of service: 03/10/2019 PROCEDURE: Bilateral lower extremity venous duplex Doppler. HISTORY: R/O DVT COMPARISON: None available. TECHNIQUE: Bilateral common femoral, superficial femoral, popliteal and posterior tibial veins were evaluated. Flow was assessed with color Doppler, compressibility, assessment of phasic flow and augmentation response. FINDINGS: COMMON FEMORAL VEIN: Right CFV: Unremarkable. Left CFV: Unremarkable. SUPERFICIAL FEMORAL VEIN: Right SFV: Unremarkable. Left SFV: Unremarkable. POPLITEAL VEIN: Right Popliteal: Unremarkable. Left Popliteal: Unremarkable. POSTERIOR TIBIAL VEIN: Right PTV: Unremarkable. Left PTV: Unremarkable. OTHER FINDINGS: None. IMPRESSION: No evidence of deep venous thrombosis.
[2019-03-10 13:00] VITALS: BP 129/85; PULSE 102; TEMP 97.9
--- NOTE | 2019-03-10 14:10 | CP.PCM.DIS ---
<Norberto Shine - Last Filed: 03/10/19 16:41> Provider - Provider Date of Admission: 03/07/19 07:57 Attending physician: [place] DO Consults: 03/05/19 16:37 Pulmonology Consult Routine Comment: Consulting Provider: Aayush Hines Consulting Physician: Aayush Hines Reason for Consult: COPD exacerbation 03/07/19 09:30 Physician Consult Routine Comment: Consulting Provider: Azeem Rodrigues Consulting Physician: Azeem Rodrigues Reason for Consult: anular lesions over extremities Time Spent in preparation of Discharge (in minutes): 20 Diagnosis - Discharge Diagnosis (1) COPD exacerbation Status: Acute Priority: High (2) Elevated IgE level Status: Acute (3) Hypoxia Status: Acute Priority: High (4) Asthma Status: Chronic Priority: High (5) BMI 31.0-31.9,adult Status: Chronic Priority: High (6) Skin rash Status: Chronic Hospital Course - Lab Results Lab Results: Micro Results 03/05/19 14:20 Blood-Venous Blood Culture - Preliminary NO GROWTH AFTER 4 DAYS 03/05/19 14:50 Blood-Venous Blood Culture - Preliminary NO GROWTH AFTER 4 DAYS Most Recent Lab Values WBC 12.2 K/uL (4.8-10.8) H 03/10/19 05:10 RBC 4.01 Mil/uL (3.80-5.20) 03/10/19 05:10 Hgb 14.0 g/dL (12.0-16.0) 03/10/19 05:10 Hct 41.2 % (34.0-47.0) 03/10/19 05:10 MCV 102.7 fl (81.0-99.0) H 03/10/19 05:10 MCH 34.9 pg (27.0-31.0) H 03/10/19 05:10 MCHC 34.0 g/dL (33.0-37.0) 03/10/19 05:10 RDW 13.9 % (11.5-14.5) 03/10/19 05:10 Plt Count 184 K/uL (130-400) 03/10/19 05:10 MPV 8.7 fl (7.2-11.7) 03/09/19 05:10 Neut % (Auto) 87.9 % (50.0-75.0) H 03/09/19 05:10 Lymph % (Auto) 5.7 % (20.0-40.0) L 03/09/19 05:10 [place] % (Auto) 6.3 % (0.0-10.0) 03/09/19 05:10 Eos % (Auto) 0.0 % (0.0-4.0) 03/09/19 05:10 Baso % (Auto) 0.1 % (0.0-2.0) 03/09/19 05:10 Neut # (Auto) 11.8 K/uL (1.8-7.0) H 03/09/19 05:10 Lymph # (Auto) 0.8 K/uL (1.0-4.3) L 03/09/19 05:10 [place] # (Auto) 0.8 K/uL (0.0-0.8) 03/09/19 05:10 Eos # (Auto) 0.0 K/uL (0.0-0.7) 03/09/19 05:10 Baso # (Auto) 0.0 K/uL (0.0-0.2) 03/09/19 05:10 Neutrophils % (Manual) 79 % (42-75) H 03/07/19 04:45 Band Neutrophils % 6 % (0-2) H 03/07/19 04:45 Lymphocytes % (Manual) 10 % (20-50) L 03/07/19 04:45 Reactive Lymphs % 1 % (0-0) H 03/07/19 04:45 Monocytes % (Manual) 3 % (0-10) 03/07/19 04:45 Myelocytes % 1 % (0-0) H 03/07/19 04:45 Platelet Estimate Normal (NORMAL) 03/07/19 04:45 Poikilocytosis (manual Slight 03/07/19 04:45 Anisocytosis (manual) Slight 03/07/19 04:45 Stomatocytes Slight 03/07/19 04:45 PT 12.9 Seconds (9.8-13.1) 03/05/19 14:08 INR 1.1 03/05/19 14:08 APTT 34.7 Seconds (25.6-37.1) 03/05/19 14:08 D-Dimer, Quantitative 260 ng/mlDDU (0-230) H 03/05/19 14:08 pCO2 45 mm/Hg (35-45) 03/08/19 03:59 pO2 62 mm/Hg (80-100) L 03/08/19 03:59 HCO3 29.1 mmol/L (21-28) H 03/08/19 03:59 ABG pH 7.44 (7.35-7.45) 03/08/19 03:59 ABG Total CO2 32.0 mmol/L (22-28) H 03/08/19 03:59 ABG O2 Saturation 94.2 % (95-98) L 03/08/19 03:59 ABG O2 Content 17.5 ML/dL (15-23) 03/08/19 03:59 ABG Base Excess 5.6 mmol/L (-2.0-3.0) H 03/08/19 03:59 ABG Hemoglobin 13.7 g/dL (11.7-17.4) 03/08/19 03:59 ABG Carboxyhemoglobin 2.2 % (0.5-1.5) H 03/08/19 03:59 POC ABG HHb (Measured) 5.6 % (0.0-5.0) H 03/08/19 03:59 ABG Methemoglobin 1.3 % (0.0-3.0) 03/08/19 03:59 ABG O2 Capacity 18.6 mL/dL (16-24) 03/08/19 03:59 Mynor Test Yes 03/08/19 03:59 ABG Potassium 4.1 mmol/L (3.6-5.2) 03/05/19 14:01 A-a O2 Difference 238.0 mm/Hg 03/08/19 03:59 Hgb O2 Saturation 90.9 % (95.0-98.0) L 03/08/19 03:59 Sodium 135.0 mmol/L (132-148) 03/05/19 14:01 Chloride 101.0 mmol/L (98-107) 03/05/19 14:01 Glucose 162 mg/dL (65-105) H 03/05/19 14:01 Lactate 1.0 mmol/L (0.7-2.1) 03/05/19 14:01 Liter Flow 30 03/08/19 03:59 Vent Mode High flow lpm 03/08/19 03:59 FiO2 50.0 % 03/08/19 03:59 Sodium 137 mmol/l (132-148) 03/10/19 05:10 Potassium 3.5 MMOL/L (3.6-5.0) L 03/10/19 05:10 Chloride 98 mmol/L (98-107) 03/10/19 05:10 Carbon Dioxide 31 mmol/L (22-30) H 03/10/19 05:10 Anion Gap 12 (10-20) 03/10/19 05:10 BUN 25 mg/dl (7-17) H 03/10/19 05:10 Creatinine 0.6 mg/dl (0.7-1.2) L 03/10/19 05:10 Est GFR ( Amer) > 60 03/10/19 05:10 Est GFR (Non-Af Amer) > 60 03/10/19 05:10 Random Glucose 95 mg/dL (65-105) 03/10/19 05:10 Hemoglobin A1c 6.4 % (4.2-6.5) 03/06/19 04:20 Calcium 8.6 mg/dL (8.4-10.2) 03/10/19 05:10 Total Bilirubin 0.8 mg/dl (0.2-1.3) 03/10/19 05:10 AST 35 U/L (14-36) 03/10/19 05:10 ALT 49 U/L (9-52) 03/10/19 05:10 Alkaline Phosphatase 58 U/L (38-126) 03/10/19 05:10 Troponin I < 0.0120 ng/mL (0.00-0.120) 03/05/19 14:08 NT-Pro-B Natriuret Pep 29.6 pg/ml (0-900) 03/05/19 14:08 Total Protein 6.8 G/DL (6.3-8.2) 03/10/19 05:10 Albumin 3.6 g/dL (3.5-5.0) 03/10/19 05:10 Globulin 3.2 gm/dL (2.2-3.9) 03/10/19 05:10 Albumin/Globulin Ratio 1.1 (1.0-2.1) 03/10/19 05:10 Dzdfp-3-Dzauradcifu 170 mg/dL (83-199) 03/06/19 13:40 Vitamin B12 719 pg/mL (239-931) 03/07/19 09:15 TSH 3rd Generation 0.59 mIU/ML (0.46-4.68) 03/05/19 14:08 A. tenuis Allergen IgE 0.40 kU/L (<0.10) H 03/06/19 13:40 A. tenuis Conven Class 1 H 03/06/19 13:40 Aspergillus fumigatus 34.20 kU/L (<0.10) H 03/06/19 13:40 A. fumigatus ASM Class 4 H 03/06/19 13:40 Cladosporium herbarum 0.18 kU/L (<0.10) H 03/06/19 13:40 C. herbarum ASM Class 0/1 H 03/06/19 13:40 D. farinae IgE Class 3 H 03/06/19 13:40 D. farinae Allrgen IgE 3.68 kU/L (<0.10) H 03/06/19 13:40 D. pteronyssinus Class 3 H 03/06/19 13:40 D. pteronyssinus IgE 5.26 kU/L (<0.10) H 03/06/19 13:40 Penicillium notatum 3.75 kU/L (<0.10) H 03/06/19 13:40 P, notatum ASM Class 3 H 03/06/19 13:40 [place] Class 0/1 H 03/06/19 13:40 [place] Allrg 0.20 kU/L (<0.10) H 03/06/19 13:40 [place] Conven Cls 0/1 H 03/06/19 13:40 [place] Allergen 0.14 kU/L (<0.10) H 03/06/19 13:40 [place] Class 0/1 H 03/06/19 13:40 [place] ([place] Allg 0.15 kU/L (<0.10) H 03/06/19 13:40 [place] Clss 0/1 H 03/06/19 13:40 [place] Allerg 0.13 kU/L (<0.10) H 03/06/19 13:40 [place] Class 0/1 H 03/06/19 13:40 [place] Class 0 03/06/19 13:40 [place] Allergen 0.15 kU/L (<0.10) H 03/06/19 13:40 [place] ASM Class 0/1 H 03/06/19 13:40 [place] Allergen 0.10 kU/L (<0.10) H 03/06/19 13:40 [place] Allergen 0.16 kU/L (<0.10) H 03/06/19 13:40 [place] Class 0/1 H 03/06/19 13:40 [place] Tree Allergen 0.17 kU/L (<0.10) H 03/06/19 13:40 [place] Class 0/1 H 03/06/19 13:40 [place] Allerg 0.14 kU/L (<0.10) H 03/06/19 13:40 [place] Clss 0/1 H 03/06/19 13:40 [place] Allergen <0.10 kU/L (<0.10) 03/06/19 13:40 [place] Allergen 0.31 kU/L (<0.10) H 03/06/19 13:40 [place] Cl 0/1 H 03/06/19 13:40 [place] Allergen 1.18 kU/L (<0.10) H 03/06/19 13:40 [place] Cnvnt Cls 2 H 03/06/19 13:40 Common Pigweed Allerg <0.10 kU/L (<0.10) 03/06/19 13:40 Common Ragweed Allergen 0.12 kU/L (<0.10) H 03/06/19 13:40 Comm Ragweed Cnvnt Cls 0/1 H 03/06/19 13:40 Mugwort Allergen <0.10 kU/L (<0.10) 03/06/19 13:40 Mugwort Conventional 0 03/06/19 13:40 Pigweed Conventional 0 03/06/19 13:40 [place] Allergen <0.10 kU/L (<0.10) 03/06/19 13:40 [place] Conven Cls 0 03/06/19 13:40 Cat [place]ander Allergen 4.51 kU/L (<0.10) H 03/06/19 13:40 [place] Class 3 H 03/06/19 13:40 Dog Dander IgE Allergen 2.91 kU/L (<0.10) H 03/06/19 13:40 [place] Cls 2 H 03/06/19 13:40 Mouse Urine Allergen <0.10 kU/L (<0.10) 03/06/19 13:40 Mouse Urine Conven Clss 0 03/06/19 13:40 Cockroach Allergen <0.10 kU/L (<0.10) 03/06/19 13:40 [place] Clss 0 03/06/19 13:40 Arterial Blood Potassium 4.1 mmol/L (3.6-5.2) 03/05/19 14:01 IgE 957 kU/L (<ez=859) H 03/06/19 13:40 ANIKET Screen Negative (Negative) 03/07/19 10:15 Influenza Typ A,B (EIA) Negative for flu a/b (NEGATIVE) 03/05/19 14:08 Ur L.pneumophila Ag Negative (NEGATIVE) 03/09/19 03:20 Mycoplasma pneumon IgM Negative (NEGATIVE) 03/08/19 10:15 - Hospital Course Hospital Course: 58 YO Female with PMHx of smoking and COPD is admitted for COPD exacerbation. Upon admission patient was placed on high flow ox due to hypoxia, and acute respiratory distress. During her stay patient oxygen improved, and was able to switch to nasal canula in 3L. during her stay pating also had flushed face, which we did a full allergen work up and was positive for multiple allergen, patient was informed and will follow up with derm as out patient. Patient received duoneb, azithromycin, roflumilast, albuterol and guaifenasin. Patient symptoms improved. But still her oxygen saturation on rest is 87%. Patient seen and examined at bedside today. No acute event overnight. Patient still on nasal canula saturating on 95%, without canula she is 86-87% on rest. Patient will be discharge and will be sent on home oxygen. patient will follow up with Dr Hines as outpatient for further management. ECho reading EJ 55-60%, transmitral doppler flow pattern is grade 1 abnormal relaxation, LEft Atrium is mild dilated. trace of tricuspid valve regurgitation. RVSP is calculated at 20mmHG There is a moderate to large perfusion defect in the right lower lobe. This cannot be compared to the perfusion scan due to limitation noted above. Therefore, this is an indeterminate study. No other significant perfusion defect is appreciated elsewhere. Medication Home oxygen 2 L Symbicort 160/4.5, 2 puffs BID. Ventoilin HFA, 2 puffs Q4H prn. Daliresp 250mcg POOD. Azithromycin 250MG POOD. Spiriva Respimat 2.5MG, 2 puffs OD. Prednisone 10MG BID with tapering schedule. Office follow up next week with doctor Flora. Will follow up for Ventilation/Perfusion test discussion with Dr Hines as outpatient. Discharge Exam - Head Exam Head Exam: NORMAL INSPECTION - Eye Exam Eye Exam: EOMI, Normal appearance, PERRL Pupil Exam: NORMAL ACCOMODATION, PERRL - Respiratory Exam Respiratory Exam: Rales, Wheezes, NORMAL BREATHING PATTERN, UNREMARKABLE - Cardiovascular Exam Cardiovascular Exam: REGULAR RHYTHM, +S1, +S2 - GI/Abdominal Exam GI & Abdominal Exam: Normal Bowel Sounds, Unremarkable - Neurological Exam Neurological exam: Alert, Normal Gait, Oriented x3 - Psychiatric Exam Psychiatric exam: Normal Affect, Normal Mood - Skin Skin Exam: Dry, Intact, Rash, Warm Additional comments: Flushed color Discharge Plan - Discharge Medications Prescriptions: Albuterol HFA [Ventolin HFA 90 mcg/actuation (8 g)] 2 puff INH Q2H PRN #1 inhaler PRN Reason: Shortness Of Breath Albuterol Sulfate [Ventolin Hfa] 2 puff PO PRN PRN #1 hfa.aer.ad PRN Reason: Shortness Of Breath Albuterol/Ipratropium [Duoneb 3 MG/3 Ml-0.5 MG/3 Ml 3 Ml] 1 ea IH Q4 PRN #100 neb PRN Reason: Shortness Of Breath Albuterol/Ipratropium [Duoneb 3 MG/3 Ml-0.5 MG/3 Ml 3 Ml] 1 ea IH Q4H PRN #2 packet PRN Reason: short of breath Azithromycin 250 mg PO ASDIR #6 tablet Budesonide/Formoterol Fumarate [Symbicort 160-4.5 Mcg Inhaler] 2 aer IH DAILY #1 hfa.aer.ad Prednisone 5 mg PO BID #14 tab.ds.pk Roflumilast [Daliresp] 250 mcg PO DAILY #30 tablet - Follow Up Plan Condition: FAIR Disposition: HOME/ ROUTINE Instructions: Asthma, Adult (DC), Exacerbation of COPD (DC) Additional Instructions: follow up witH in 1 week Referrals: Aayush Hines MD [Family Provider] - <Sabina Figueroa - Last Filed: 03/10/19 17:01> Provider - Provider Date of Admission: 03/07/19 07:57 Attending physician: [place] DO Consults: 03/05/19 16:37 Pulmonology Consult Routine Comment: Consulting Provider: Aayush Hnies Consulting Physician: Aayush Hines Reason for Consult: COPD exacerbation 03/07/19 09:30 Physician Consult Routine Comment: Consulting Provider: Azeem Rodrigues Consulting Physician: Azeem Rodrigues Reason for Consult: anular lesions over extremities Hospital Course - Lab Results Lab Results: Micro Results 03/05/19 14:20 Blood-Venous Blood Culture - Final NO GROWTH AFTER 5 DAYS 03/05/19 14:20 Blood-Venous Gram Stain - Final TEST NOT PERFORMED 03/05/19 14:50 Blood-Venous Blood Culture - Final NO GROWTH AFTER 5 DAYS 03/05/19 14:50 Blood-Venous Gram Stain - Final TEST NOT PERFORMED Most Recent Lab Values WBC 12.2 K/uL (4.8-10.8) H 03/10/19 05:10 RBC 4.01 Mil/uL (3.80-5.20) 03/10/19 05:10 Hgb 14.0 g/dL (12.0-16.0) 03/10/19 05:10 Hct 41.2 % (34.0-47.0) 03/10/19 05:10 MCV 102.7 fl (81.0-99.0) H 03/10/19 05:10 MCH 34.9 pg (27.0-31.0) H 03/10/19 05:10 MCHC 34.0 g/dL (33.0-37.0) 03/10/19 05:10 RDW 13.9 % (11.5-14.5) 03/10/19 05:10 Plt Count 184 K/uL (130-400) 03/10/19 05:10 MPV 8.7 fl (7.2-11.7) 03/09/19 05:10 Neut % (Auto) 87.9 % (50.0-75.0) H 03/09/19 05:10 Lymph % (Auto) 5.7 % (20.0-40.0) L 03/09/19 05:10 [place] % (Auto) 6.3 % (0.0-10.0) 03/09/19 05:10 Eos % (Auto) 0.0 % (0.0-4.0) 03/09/19 05:10 Baso % (Auto) 0.1 % (0.0-2.0) 03/09/19 05:10 Neut # (Auto) 11.8 K/uL (1.8-7.0) H 03/09/19 05:10 Lymph # (Auto) 0.8 K/uL (1.0-4.3) L 03/09/19 05:10 [place] # (Auto) 0.8 K/uL (0.0-0.8) 03/09/19 05:10 Eos # (Auto) 0.0 K/uL (0.0-0.7) 03/09/19 05:10 Baso # (Auto) 0.0 K/uL (0.0-0.2) 03/09/19 05:10 Neutrophils % (Manual) 79 % (42-75) H 03/07/19 04:45 Band Neutrophils % 6 % (0-2) H 03/07/19 04:45 Lymphocytes % (Manual) 10 % (20-50) L 03/07/19 04:45 Reactive Lymphs % 1 % (0-0) H 03/07/19 04:45 Monocytes % (Manual) 3 % (0-10) 03/07/19 04:45 Myelocytes % 1 % (0-0) H 03/07/19 04:45 Platelet Estimate Normal (NORMAL) 03/07/19 04:45 Poikilocytosis (manual Slight 03/07/19 04:45 Anisocytosis (manual) Slight 03/07/19 04:45 Stomatocytes Slight 03/07/19 04:45 PT 12.9 Seconds (9.8-13.1) 03/05/19 14:08 INR 1.1 03/05/19 14:08 APTT 34.7 Seconds (25.6-37.1) 03/05/19 14:08 D-Dimer, Quantitative 260 ng/mlDDU (0-230) H 03/05/19 14:08 pCO2 45 mm/Hg (35-45) 03/08/19 03:59 pO2 62 mm/Hg (80-100) L 03/08/19 03:59 HCO3 29.1 mmol/L (21-28) H 03/08/19 03:59 ABG pH 7.44 (7.35-7.45) 03/08/19 03:59 ABG Total CO2 32.0 mmol/L (22-28) H 03/08/19 03:59 ABG O2 Saturation 94.2 % (95-98) L 03/08/19 03:59 ABG O2 Content 17.5 ML/dL (15-23) 03/08/19 03:59 ABG Base Excess 5.6 mmol/L (-2.0-3.0) H 03/08/19 03:59 ABG Hemoglobin 13.7 g/dL (11.7-17.4) 03/08/19 03:59 ABG Carboxyhemoglobin 2.2 % (0.5-1.5) H 03/08/19 03:59 POC ABG HHb (Measured) 5.6 % (0.0-5.0) H 03/08/19 03:59 ABG Methemoglobin 1.3 % (0.0-3.0) 03/08/19 03:59 ABG O2 Capacity 18.6 mL/dL (16-24) 03/08/19 03:59 Mynor Test Yes 03/08/19 03:59 ABG Potassium 4.1 mmol/L (3.6-5.2) 03/05/19 14:01 A-a O2 Difference 238.0 mm/Hg 03/08/19 03:59 Hgb O2 Saturation 90.9 % (95.0-98.0) L 03/08/19 03:59 Sodium 135.0 mmol/L (132-148) 03/05/19 14:01 Chloride 101.0 mmol/L (98-107) 03/05/19 14:01 Glucose 162 mg/dL (65-105) H 03/05/19 14:01 Lactate 1.0 mmol/L (0.7-2.1) 03/05/19 14:01 Liter Flow 30 03/08/19 03:59 Vent Mode High flow lpm 03/08/19 03:59 FiO2 50.0 % 03/08/19 03:59 Sodium 137 mmol/l (132-148) 03/10/19 05:10 Potassium 3.5 MMOL/L (3.6-5.0) L 03/10/19 05:10 Chloride 98 mmol/L (98-107) 03/10/19 05:10 Carbon Dioxide 31 mmol/L (22-30) H 03/10/19 05:10 Anion Gap 12 (10-20) 03/10/19 05:10 BUN 25 mg/dl (7-17) H 03/10/19 05:10 Creatinine 0.6 mg/dl (0.7-1.2) L 03/10/19 05:10 Est GFR ( Amer) > 60 03/10/19 05:10 Est GFR (Non-Af Amer) > 60 03/10/19 05:10 Random Glucose 95 mg/dL (65-105) 03/10/19 05:10 Hemoglobin A1c 6.4 % (4.2-6.5) 03/06/19 04:20 Calcium 8.6 mg/dL (8.4-10.2) 03/10/19 05:10 Total Bilirubin 0.8 mg/dl (0.2-1.3) 03/10/19 05:10 AST 35 U/L (14-36) 03/10/19 05:10 ALT 49 U/L (9-52) 03/10/19 05:10 Alkaline Phosphatase 58 U/L (38-126) 03/10/19 05:10 Troponin I < 0.0120 ng/mL (0.00-0.120) 03/05/19 14:08 NT-Pro-B Natriuret Pep 29.6 pg/ml (0-900) 03/05/19 14:08 Total Protein 6.8 G/DL (6.3-8.2) 03/10/19 05:10 Albumin 3.6 g/dL (3.5-5.0) 03/10/19 05:10 Globulin 3.2 gm/dL (2.2-3.9) 03/10/19 05:10 Albumin/Globulin Ratio 1.1 (1.0-2.1) 03/10/19 05:10 Oozrb-9-Hkzbvkhppbn 170 mg/dL (83-199) 03/06/19 13:40 Vitamin B12 719 pg/mL (239-931) 03/07/19 09:15 TSH 3rd Generation 0.59 mIU/ML (0.46-4.68) 03/05/19 14:08 A. tenuis Allergen IgE 0.40 kU/L (<0.10) H 03/06/19 13:40 A. tenuis Conven Class 1 H 03/06/19 13:40 Aspergillus fumigatus 34.20 kU/L (<0.10) H 03/06/19 13:40 A. fumigatus ASM Class 4 H 03/06/19 13:40 Cladosporium herbarum 0.18 kU/L (<0.10) H 03/06/19 13:40 C. herbarum ASM Class 0/1 H 03/06/19 13:40 D. farinae IgE Class 3 H 03/06/19 13:40 D. farinae Allrgen IgE 3.68 kU/L (<0.10) H 03/06/19 13:40 D. pteronyssinus Class 3 H 03/06/19 13:40 D. pteronyssinus IgE 5.26 kU/L (<0.10) H 03/06/19 13:40 Penicillium notatum 3.75 kU/L (<0.10) H 03/06/19 13:40 P, notatum ASM Class 3 H 03/06/19 13:40 [place] Class 0/1 H 03/06/19 13:40 [place] Allrg 0.20 kU/L (<0.10) H 03/06/19 13:40 [place] Conven Cls 0/1 H 03/06/19 13:40 [place] Allergen 0.14 kU/L (<0.10) H 03/06/19 13:40 [place] Class 0/1 H 03/06/19 13:40 [place] ([place] Allg 0.15 kU/L (<0.10) H 03/06/19 13:40 [place] Clss 0/1 H 03/06/19 13:40 [place] Allerg 0.13 kU/L (<0.10) H 03/06/19 13:40 [place] Class 0/1 H 03/06/19 13:40 [place] Class 0 03/06/19 13:40 [place] Allergen 0.15 kU/L (<0.10) H 03/06/19 13:40 [place] ASM Class 0/1 H 03/06/19 13:40 [place] Allergen 0.10 kU/L (<0.10) H 03/06/19 13:40 [place] Allergen 0.16 kU/L (<0.10) H 03/06/19 13:40 [place] Class 0/1 H 03/06/19 13:40 [place] Allergen 0.17 kU/L (<0.10) H 03/06/19 13:40 [place] Class 0/1 H 03/06/19 13:40 [place] Allerg 0.14 kU/L (<0.10) H 03/06/19 13:40 [place] Clss 0/1 H 03/06/19 13:40 [place] Allergen <0.10 kU/L (<0.10) 03/06/19 13:40 [place] Allergen 0.31 kU/L (<0.10) H 03/06/19 13:40 [place] Cl 0/1 H 03/06/19 13:40 [place] Allergen 1.18 kU/L (<0.10) H 03/06/19 13:40 [place] Cnvnt Cls 2 H 03/06/19 13:40 Common Pigweed Allerg <0.10 kU/L (<0.10) 03/06/19 13:40 Common Ragweed Allergen 0.12 kU/L (<0.10) H 03/06/19 13:40 Comm [place]weed Cnvnt Cls 0/1 H 03/06/19 13:40 Mugwort Allergen <0.10 kU/L (<0.10) 03/06/19 13:40 Mugwort Conventional 0 03/06/19 13:40 Pigweed Conventional 0 03/06/19 13:40 [place] Allergen <0.10 kU/L (<0.10) 03/06/19 13:40 [place] Conven Cls 0 03/06/19 13:40 Cat [place] Allergen 4.51 kU/L (<0.10) H 03/06/19 13:40 [place] Class 3 H 03/06/19 13:40 Dog [place] IgE Allergen 2.91 kU/L (<0.10) H 03/06/19 13:40 [place] Cls 2 H 03/06/19 13:40 Mouse Urine Allergen <0.10 kU/L (<0.10) 03/06/19 13:40 Mouse Urine Conven Clss 0 03/06/19 13:40 Cockroach Allergen <0.10 kU/L (<0.10) 03/06/19 13:40 [place] Clss 0 03/06/19 13:40 Arterial Blood Potassium 4.1 mmol/L (3.6-5.2) 03/05/19 14:01 IgE 957 kU/L (<rp=338) H 03/06/19 13:40 ANIKET Screen Negative (Negative) 03/07/19 10:15 Influenza Typ A,B (EIA) Negative for flu a/b (NEGATIVE) 03/05/19 14:08 Ur L.pneumophila Ag Negative (NEGATIVE) 03/09/19 03:20 Mycoplasma pneumon IgM Negative (NEGATIVE) 03/08/19 10:15 Attending/Attestation - Attestation I have personally seen and examined this patient.: Yes I have fully participated in the care of the patient.: Yes I have reviewed all pertinent clinical information, including history, physical exam and plan: Yes Notes (Text): Acute Hypercapneic and Hypoxemic Respiratory Failure Acute COPD exacerbation Acute Asthma exacerbation, moderate intermittent Asthma Elevated IgE levels BMI 31 , Overweight Skin Lesions - Pt was initially on High Flow Oxygen - now improved and saturating well on 2-3 liters NC - Received IV Solumedrol - tapered and will be d/ home on PO Prednisone -Duoneb Neb tx RTC - Pt will be d/c home on Daliresp and Symbicort - Home Oxygen ordered and delivered at bedside prior to discharge , Nebulizer machine also ordered - Pt will see Dermatology as an outpt to further mgt of skin lesions - Pt will also be seeing an Allergologist
== END 2019-03-10 15:50 | disposition home or self-care (01) | DRG 191 ==
LOC: H.ER 13:13 → H.ERHOLD 16:34 → H.TEL 18:57 → OBSVTOIN 03-07 07:57
PROVIDERS: ADMIT Student in an Organized Health Care Education/Training Program; ATTEND Student in an Organized Health Care Education/Training Program
DX: J44.1 Chronic obstructive pulmonary disease with (acute) exacerbation (principal); J45.21 Mild intermittent asthma with (acute) exacerbation; R73.9 Hyperglycemia, unspecified; T38.0X5A Adverse effect of glucocorticoids and synthetic analogues, initial encounter; R21 Rash and other nonspecific skin eruption; R09.02 Hypoxemia; E66.3 Overweight; Z68.31 Body mass index [BMI] 31.0-31.9, adult; Z79.51 Long term (current) use of inhaled steroids; Z87.891 Personal history of nicotine dependence; I07.1 Rheumatic tricuspid insufficiency